=== PATIENT | female | born 2000 | race Caucasian/White ===

== ENCOUNTER 2021-07-30 11:33 | Emergency (ER) | payer BC, SELFPAY ==
--- NOTE | ~2021-07-30 | XR_ITS ---
EXAMINATION: XR chest 2V 07/30/2021 12:35 INDICATION: Cough. Right-sided wheezing. PROCEDURE: 2 view chest COMPARISON: No prior studies for comparison. FINDINGS: The lungs are clear. The cardiomediastinal silhouette is within normal limits. There are no pleural effusions. There is no pneumothorax suspected. IMPRESSION: 1: NO ACUTE CARDIOPULMONARY DISEASE. Reviewed, dictated and finalized at location A.
[2021-07-30 11:59] VITALS: BP 125/75; PULSE 74; RESP 18; TEMP 36.6; O2SAT 100
--- NOTE | 2021-07-30 12:31 | ED.URI ---
HPI - URI/Sore Throat General Chief Complaint: Upper Respiratory Infection Stated Complaint: Sore Throat,Cough Source: patient Mode of arrival: ambulatory Limitations: no limitations History of Present Illness HPI Narrative: Patient is a 21-year-old female who presents complaining of body aches, productive cough, congestion and hoarseness over the past week. Patient is a member of reports negative Covid test on . She reports a history of sinusitis and pneumonia. She denies other significant medical history. She denies taking [id number] medications prior to arrival. Related Data Allergies Allergy/AdvReac Type Severity Reaction Status Date / Time No Known Allergies Allergy Verified 07/30/21 12:51 Review of Systems Review of Systems: CONSTITUTIONAL: Reports body aches EYES: Denies visual changes, redness, or discharge. ENT: Reports congestion, mild sore throat and hoarseness CARDIOVASCULAR: Denies chest pain, palpitations, or edema. RESPIRATORY: Reports intermittent productive cough, denies dyspnea. GASTROINTESTINAL: Denies abdominal pain, nausea, vomiting, or diarrhea. GENITOURINARY: Denies dysuria or hematuria. SKIN: Denies rash or itching. MUSCULOSKELETAL: Denies back pain, joint pain, or myalgia. NEUROLOGIC: Denies headache, numbness, dizziness, or weakness. PSYCHIATRIC: Denies anxiety or depression. Exam Narrative: GENERAL: Well-appearing, well-nourished, and in no acute distress. HEAD: Normocephalic, atraumatic. EYES: EOMI. No redness or drainage. Conjunctiva are normal. ENT: Mucous membranes pink and moist. CHEST: No respiratory distress. Scattered wheezes bilaterally HEART: Regular rate and rhythm. No murmur appreciated. Normal peripheral pulses. EXTREMITIES: Normal range of motion. NEURO: No focal deficits. Alert and oriented x3. Gait steady. PSYCH: Normal affect. No signs of depression or anxiety. Course Vital Signs Vital signs: Vital Signs Temperature 36.6 C 07/30/21 11:59 Pulse Rate 74 07/30/21 11:59 Respiratory Rate 18 07/30/21 11:59 Blood Pressure 125/75 07/30/21 11:59 Pulse Oximetry 100 07/30/21 11:59 Temperature 36.6 C 07/30/21 11:59 Pulse Rate 74 07/30/21 11:59 Respiratory Rate 18 07/30/21 11:59 Blood Pressure 125/75 07/30/21 11:59 Pulse Oximetry 100 07/30/21 11:59 Reviewed MDM - URI/Sore Throat MDM Narrative Medical decision making narrative: Patient's rapid Covid test is negative at this time. Discussed with patient taking prednisone for scattered wheezes bilaterally. Patient agrees with plan of care. Patient is aware of red flags and when to seek further assistance. Patient is stable for discharge home with outpatient follow-up as discussed. Differential Diagnosis Differential diagnosis: Likely other (URI, pharyngitis, bronchitis, Covid, viral infection) Imaging Data Radiologist's impression: ITS Impressions Chest X-Ray 07/30/21 12:39 IMPRESSION: 1: NO ACUTE CARDIOPULMONARY DISEASE. Critical Care Time Critical Care Time Critical Care Time: No Discharge Plan Discharge Clinical Impression: Upper respiratory infection Qualifiers: URI type: unspecified URI Qualified Code(s): J06.9 - Acute upper respiratory infection, unspecified Patient Disposition: Home, Self-Care Condition: Stable Instructions: Antibiotic Form, Upper Respiratory Infection (ED) Additional Instructions: Your rapid Covid is negative at this time. You most likely have a viral upper respiratory infection. Take prednisone as directed. Stay well-hydrated. Follow-up with your PCP in 3 to 5 days if symptoms continue to persist. Prescriptions: New prednisone 20 mg tablet 40 mg PO DAILY 5 Days Qty: 10 RF: 0 azithromycin 250 mg tablet See Rx Instructions .ROUTE .COMPLEX Qty: 6 RF: 0 Follow-up/Referrals: [facility], [Primary Care Provider] -
== END 2021-07-30 13:00 | disposition home or self-care (01) ==
PROVIDERS: Emergency Provider Nurse Practitioner
DX: J02.9 Acute pharyngitis, unspecified (principal); Z20.822 Contact with and (suspected) exposure to COVID-19
CPT/HCPCS: 71046; 87426; 99213; C9803; G0463

== ENCOUNTER 2023-01-11 10:19 | Outpatient (CLI) | payer BC, SELFPAY ==
[2023-01-11 10:30] LABS: Basophils Absolute Auto 0.02 K/mm3 (0.00-0.10); Basophils Percent Auto 0.5 % (0.0-1.0); Eosinophils Absolute Auto 0.07 K/mm3 (0.02-0.50); Eosinophils Percent Auto 1.6 % (1.0-6.0); Hematocrit 40.5 % (35.0-49.0); Hemoglobin 14.1 g/dL (12.0-15.0); Immature Granulocyte Absolute 0.01 K/mm3 (0.00-0.00); Immature Granulocyte Percent A 0.2 % (0.0-0.0); Lymphocytes Absolute Auto 1.64 K/mm3 (1.10-4.50); Lymphocytes Percent Auto 38.2 % (18.0-42.0); Mean Corpuscular HGB Conc 34.8 g/dL (32.0-36.0); Mean Corpuscular Hemoglobin 32.7 pg (27.0-31.0); Mean Platelet Volume 10.2 fl (9.2-11.8); Monocytes Absolute Auto 0.28 K/mm3 (0.10-0.90); Monocytes Percent Auto 6.5 % (2.0-11.0); Neutrophils Absolute Auto 2.3 K/mm3 (1.7-7.2); Platelet Count Result 187 K/mm3 (150-420); Red Blood Count 4.31 M/mm3 (4.20-5.40); Red Cell Distribution Width 12.3 % (11.6-14.4); White Blood Count 4.3 K/mm3 (4.8-10.8)
[2023-01-11 11:30] LABS: Anion Gap 7 mmol/L (8-16); Blood Urea Nitrogen 10 mg/dL (7-18); Calcium 9.1 mg/dL (8.5-10.1); Carbon Dioxide 29 mmol/L (21-32); Chloride 105 mmol/L (98-108); Cholesterol 194 mg/dL (0-200); Estimated Glomerular Filt Rate > 60; Free T4 Free Thyroxine 0.98 ng/dL (0.76-1.46); Glucose 90 mg/dL (70-99); HDL Direct 91 mg/dL (40-60); LDL Cholesterol Calculated 92 mg/dL (<130); Osmolality Calculated 291 mOsm/kg (285-295); Potassium 4.6 mmol/L (3.5-5.1); Sodium 141 mmol/L (136-145); Thyroid Stimulating Hormone 0.75 uIU/mL (0.36-3.74); Triglycerides 57 mg/dL (0-150)
[2023-01-15 04:14] LABS: Thyroid Peroxidase Antibodies <1 IU/mL (<9)
== END 2023-01-11 10:20 | disposition home or self-care (01) ==
PROVIDERS: PCP Family Medicine; Visit Provider Physician Assistant Medical
DX: E04.9 Nontoxic goiter, unspecified (principal); Z82.49 Family history of ischemic heart disease and other diseases of the circulatory system; Z13.220 Encounter for screening for lipoid disorders; R11.0 Nausea; R42 Dizziness and giddiness
CPT/HCPCS: 36415; 80048; 80061; 84439; 84443; 85025; 86376

== ENCOUNTER 2023-01-11 15:37 | Outpatient (CLI) | payer BC, SELFPAY ==
--- NOTE | ~2023-01-11 | US_ITS ---
EXAMINATION: US thyroid DATE: 01/11/2023 16:27 INDICATION: Nontoxic goiter, unspecified. TECHNIQUE: Multiple ultrasound images of the thyroid were obtained. COMPARISON: None. FINDINGS: The right thyroid lobe measures 5.3 x 1.2 x 1.4 cm. The left thyroid lobe measures 5.5 x 1.2 x 1.6 c m. There is normal echotexture and echogenicity throughout the thyroid gland. No discrete nodules id entified. Normal vascular flow is present. IMPRESSION: 1. Normal thyroid. Reviewed, dictated and finalized at location A. IMPRESSION: 1. Normal thyroid.
== END 2023-01-11 15:38 | disposition home or self-care (01) ==
PROVIDERS: PCP Family Medicine; Visit Provider Physician Assistant Medical
DX: E04.9 Nontoxic goiter, unspecified (principal)
CPT/HCPCS: 76536

== ENCOUNTER 2023-01-18 11:35 | Outpatient (CLI) | payer OTHER, BC, SELFPAY ==
[2023-01-18 11:47] LABS: Basophils Absolute Auto 0.03 K/mm3 (0.00-0.10); Basophils Percent Auto 0.7 % (0.0-1.0); Eosinophils Absolute Auto 0.08 K/mm3 (0.02-0.50); Eosinophils Percent Auto 1.9 % (1.0-6.0); Hematocrit 41.9 % (35.0-49.0); Hemoglobin 14.7 g/dL (12.0-15.0); Lymphocytes Absolute Auto 1.56 K/mm3 (1.10-4.50); Lymphocytes Percent Auto 37.1 % (18.0-42.0); Mean Corpuscular HGB Conc 35.1 g/dL (32.0-36.0); Mean Corpuscular Hemoglobin 32.3 pg (27.0-31.0); Mean Corpuscular Volume 92.1 fL (78.0-102.0); Mean Platelet Volume 10.2 fl (9.2-11.8); Monocytes Absolute Auto 0.24 K/mm3 (0.10-0.90); Monocytes Percent Auto 5.7 % (2.0-11.0); Neutrophils Absolute Auto 2.3 K/mm3 (1.7-7.2); Neutrophils Percent Auto 54.6 % (50.0-70.0); Platelet Count Result 168 K/mm3 (150-420); Red Blood Count 4.55 M/mm3 (4.20-5.40); Red Cell Distribution Width 11.9 % (11.6-14.4); White Blood Count 4.2 K/mm3 (4.8-10.8)
== END 2023-01-18 11:36 | disposition home or self-care (01) ==
LOC: CHSLAB 11:37
PROVIDERS: PCP Nurse Practitioner Family; Visit Provider Nurse Practitioner Family
DX: D72.9 Disorder of white blood cells, unspecified (principal)
CPT/HCPCS: 36415; 85025

== ENCOUNTER 2023-08-14 10:37 | Emergency (ER) | payer BC, OTHER, SELFPAY ==
[2023-08-14 10:49] VITALS: BP 112/73; PULSE 73; RESP 16; TEMP 36.8; O2SAT 100
--- NOTE | 2023-08-14 11:07 | ED.FEMALEGU ---
HPI - Female Genitourinary General Chief complaint: Urogenital-Female Stated complaint: Female Urogenital Time Seen by Provider: 08/14/23 11:07 Source: patient, RN notes reviewed and old records reviewed Mode of arrival: ambulatory Limitations: no limitations History of Present Illness HPI Narrative: 23-year-old female presents to the [facility] with complaints of vaginal itching since the 03 of August, 11 days. Patient had called mail distribution scheme examiner provider, was prescribed Diflucan on the night. States it did get better however did not completely resolve. Did make an appointment to see her mail distribution scheme examiner however she canceled it. Onset (ago): day(s) (11) Related Data Allergies Allergy/AdvReac Type Severity Reaction Status Date / Time No Known Allergies Allergy Verified 08/14/23 10:57 Review of Systems Review of Systems: All systems reviewed & are unremarkable except as noted in HPI and below Constitutional: Constitutional: Reports no additional constitutional complaints Eyes: Eyes: Reports no additional eye complaints ENT: Reports system reviewed and no additional complaints, except as documented Cardiovascular: Cardiovascular: Reports no additional cardiovascular complaints, Denies chest pain and Denies dyspnea Respiratory: Respiratory: Reports no additional respiratory complaints, Denies chest congestion, Denies cough and Denies dyspnea Gastrointestinal: Gastrointestinal: Reports no additional gastrointestinal complaints, Denies abdominal pain, Denies nausea and Denies vomiting Genitourinary: Genitourinary: Reports as per HPI, Denies dysuria, Reports vaginal discharge and Reports vaginal dryness Musculoskeletal: Musculoskeletal: Reports no additional musculoskeletal complaints Integumentary/Breasts: Skin/Breast: Reports system reviewed and no additional complaints, except as docu Neurologic: Reports system reviewed and no additional complaints, except as documented Psychiatric: Psychiatric: Reports no additional psychiatric complaints Allergic/Immunologic: Allergic/Immunologic: Reports no additional allergic/immunologic complaints REPLACED BY [facility] Past Medical History Medical History BMI 26.0-26.9,adult Family History Family History Other Alcohol abuse Asthma Depression Diabetes mellitus Heart disease Social History Social History Smoking status: Never smoker Alcohol intake: current Substance use: never Lack of Transportation: No Lack of Food: Never True Current Housing: I Have Housing Concerned About Future Housing: No Difficulty Paying Gas/Electric Bills: No Difficulty Paying for Meds: No Currently Unemployed: No Education: High School Diploma/GED Difficulty w/ Childcare or Family Care: No Comments At the time of my signature, I reviewed and agree with the nursing past medical, surgical, social, and family history. There is no relevant family history pertinent to the patient complaint. Exam Const: General: cooperative, healthy appearing, comfortable, no acute distress, well developed, alert and well nourished Nutritional Appearance: well nourished Orientation/consciousness: patient oriented x3 Limitations: no limitations HENMT: Head: normal to inspection Ears: hearing grossly normal bilaterally and external ears normal Face/Nose/Sinus: Normal external nose present, Normal nares present, Normal nasal mucous membranes and turbinates present, normal facial exam and face symmetric Face and sinus: normal facial exam and face symmetric Eyes: General: appearance normal, both eyes and all related structures Alignment and Position: alignment normal Periorbital: periorbital findings normal Pupils: Equal, round and reactive pupils present EOM: EOMs intact bilaterally Neck: Neck: normal visual inspection, full ROM, no lymphadenopathy and no me
[2023-08-14 19:28] LABS: Trichomonas Vag PCR NOT DETECTED (NOT DETECTE)
== END 2023-08-14 11:40 | disposition home or self-care (01) ==
PROVIDERS: Emergency Provider Nurse Practitioner
DX: N76.0 Acute vaginitis (principal)
CPT/HCPCS: 81003; 81025; 87070; 87491; 87591; 87661; 99214; G0463

== ENCOUNTER 2024-02-18 09:48 | Emergency (ER) | payer BC, OTHER, SELFPAY ==
[2024-02-18 10:00] VITALS: BP 117/69; PULSE 73; RESP 20; TEMP 37.3; O2SAT 100
--- NOTE | 2024-02-18 10:02 | ED.GENADULT ---
HPI - General Adult General Chief complaint: Wound/Laceration Stated complaint: Skin Problem Source: patient, RN notes reviewed and old records reviewed Mode of arrival: ambulatory Limitations: no limitations History of Present Illness HPI narrative: 24-year-old female with small red area to right upper arm that she noted yesterday. Patient states has had slight drainage. Patient denies injury. Patient has not applied anything at home for area. Related Data Allergies Allergy/AdvReac Type Severity Reaction Status Date / Time No Known Allergies Allergy Verified 02/18/24 10:19 Review of Systems Constitutional: Constitutional: Reports no additional constitutional complaints, Denies body ache(s), Denies chills, Denies fatigue, Denies fever(s) and Denies headache(s) Eyes: Eyes: Reports no additional eye complaints and Denies blurry vision ENT: Reports system reviewed and no additional complaints, except as documented, Denies vertigo, Denies dizziness, Denies ear discharge, Denies otalgia, Denies facial pain, Denies headache(s), Denies nasal congestion, Denies nasal discharge, Denies sinus pain, Denies sinus pressure and Denies sore throat Cardiovascular: Cardiovascular: Reports no additional cardiovascular complaints, Denies chest pain, Denies chest pain at rest, Denies rapid heart rate and Denies dyspnea Respiratory: Respiratory: Reports no additional respiratory complaints, Denies chest congestion, Denies cough, Denies pain on inspiration, Denies pain with cough and Denies dyspnea Gastrointestinal: Gastrointestinal: Denies abdominal pain, Denies diarrhea, Denies nausea and Denies vomiting Integumentary/Breasts: Skin/Breast: Denies rash and Reports wounds Neurologic: Reports system reviewed and no additional complaints, except as documented, Denies vertigo, Denies dizziness and Denies headache(s) Endocrine: Endocrine: Denies fatigue [facility] Past Medical History Medical History BMI 26.0-26.9,adult Family History Family History Other Alcohol abuse Asthma Depression Diabetes mellitus Heart disease Social History Social History Smoking status: Never smoker Alcohol intake: current Substance use: never Lack of Transportation: No Lack of Food: Never True Current Housing: I Have Housing Concerned About Future Housing: No Difficulty Paying Gas/Electric Bills: No Difficulty Paying for Meds: No Currently Unemployed: No Education: High School Diploma/GED Difficulty w/ Childcare or Family Care: No Comments At the time of my signature, I reviewed and agree with the nursing past medical, surgical, social, and family history. There is no relevant family history pertinent to the patient complaint. Exam Const: General: cooperative, healthy appearing, no acute distress and well nourished Nutritional Appearance: well nourished Orientation/consciousness: patient oriented x3 Limitations: no limitations HENMT: Head: normal to inspection and normocephalic Ears: external ears normal Face/Nose/Sinus: normal facial exam Face and sinus: normal facial exam Mouth: Yes Normal oral and palatal mucosa present, Yes oropharynx normal and Yes moist mucous membranes Throat: uvular edema Eyes: General: appearance normal, both eyes and all related structures Sclera: sclerae normal Pupils: Equal, round and reactive pupils present Resp: Effort & Inspection: normal respiratory effort, able to speak in complete sentences, no audible wheezes, no cough, no respiratory distress and no retractions Skin: General skin exam: normal color Wounds: wounds noted ( 0.2 cm open area to left upper arm no surrounding erythema or drainage) Neuro: General: patient oriented x3 Cranial nerves: Yes Equal, round and reactive pupils present Psych: Appearance: grossly
== END 2024-02-18 10:36 | disposition home or self-care (01) ==
PROVIDERS: Emergency Provider Registered Nurse
DX: S40.861A Insect bite (nonvenomous) of right upper arm, initial encounter (principal); W57.XXXA Bitten or stung by nonvenomous insect and other nonvenomous arthropods, initial encounter
CPT/HCPCS: 99213; G0463

== ENCOUNTER 2024-06-10 14:43 | Emergency (ER) | payer BC, SELFPAY ==
[2024-06-10 14:52] VITALS: BP 113/75; PULSE 81; RESP 20; TEMP 36.6; O2SAT 99
--- NOTE | 2024-06-10 15:06 | ED.GENADULT ---
HPI - General Adult General Chief complaint: Urogenital-Female Stated complaint: Vaginal infection Source: patient Mode of arrival: ambulatory Limitations: no limitations History of Present Illness HPI narrative: Patient presents for evaluation of vaginal itching for the last 2 days. She denies any vaginal discharge or bleeding. Last menstrual period was over this past weekend(today is Sunday). She is not on contraception. She is sexually active with 1 male partner, intermittently using condoms. She denies any urinary urgency, frequency, dysuria. No fever, chills, nausea, vomiting. She states she had similar symptoms in the past with bacterial vaginosis. Related Data Allergies Allergy/AdvReac Type Severity Reaction Status Date / Time No Known Allergies Allergy Verified 02/18/24 10:19 Review of Systems Review of Systems: CONSTITUTIONAL: Denies fever, chills, or sweats. EYES: Denies visual changes, redness, or discharge. ENT: Denies rhinorrhea, congestion, sore throat, or otalgia. CARDIOVASCULAR: Denies chest pain, palpitations, or edema. RESPIRATORY: Denies cough or dyspnea. GASTROINTESTINAL: Denies abdominal pain, nausea, vomiting, or diarrhea. GENITOURINARY: Reports vaginal itching. Denies vaginal bleeding or discharge. Denies dysuria or hematuria. SKIN: Denies rash or itching. MUSCULOSKELETAL: Denies back pain, joint pain, or myalgia. NEUROLOGIC: Denies headache, numbness, dizziness, or weakness. PSYCHIATRIC: Denies anxiety or depression. [facility] Past Medical History Medical History BMI 26.0-26.9,adult No pertinent past medical history Surgical History Surgical History No pertinent past surgical history Family History Family History Other Alcohol abuse Asthma Depression Diabetes mellitus Heart disease Social History Social History Smoking status: Never smoker Alcohol intake: current Substance use: never Lack of Transportation: No Lack of Food: Never True Current Housing: I Have Housing Concerned About Future Housing: No Difficulty Paying Gas/Electric Bills: No Difficulty Paying for Meds: No Currently Unemployed: No Education: High School Diploma/GED Difficulty w/ Childcare or Family Care: No Exam Narrative: GENERAL: Well-appearing, well-nourished, and in no acute distress. HEAD: Normocephalic, atraumatic. EYES: PERRLA and EOMI. ENT: Nares clear, no rhinorrhea or epistaxis. Mucous membranes moist. Oropharynx without tonsillar hypertrophy exudate or other lesions. Bilateral TMs pearly saeed nonbulging NECK: Supple. No adenopathy or masses. No carotid bruits or JVD CHEST: Clear to auscultation. No respiratory distress. No wheezes rales or rhonchi HEART: Regular rate and rhythm. No murmur heard. Normal peripheral pulses. ABDOMEN: Soft, nontender, nondistended, normal active bowel sounds. EXTREMITIES: Normal range of motion. No edema. GENITAL: No external genital lesions. No adnexal tenderness. No cervical motion tenderness. Moderate amount of white clumpy drainage in vaginal vault with dried blood SKIN: Warm, dry, no rash. NEURO: No focal deficits. Alert and oriented x3. PSYCH: Normal mood and affect. Course Course Emergency Course: This is a 24-year-old who presents for vaginal itching. Her urine does not have changes consistent with a UTI. Clinical exam is consistent with vaginal candidiasis although she states that her symptoms are consistent with when she had BV. Will dc with fluconazole and metronidazole. Follow-up with primary provider. Go to the ER for worsening symptoms. Patient in agreement with plan of care. Level of Care: Express Care Visit Vital Signs Vital signs: Vital Signs Temperature 36.6
[2024-06-10 15:24] LABS: EDUAAPPEAR Clear; EDUABILI Negative; EDUABLOOD Negative; EDUACOLOR1 Yellow; EDUAGLUCOSE Negative; EDUAKETONE Negative; EDUALEUKO Negative; EDUANITRATE Negative; EDUAPH 8.5; EDUAPROTEIN Negative; EDUAUROBILI 0.2
[2024-06-10 15:24] LABS: BEDSIDEPREGUCG Negative
[2024-06-10 21:18] LABS: Trichomonas Vag PCR NOT DETECTED (NOT DETECTE)
[2024-06-10 21:45] LABS: Chlamydia trachomatis NOT DETECTED (NOT DETECTE); Neisseria gonorrhoeae PCR NOT DETECTED (NOT DETECTE)
[2024-06-12 16:24] LABS: Bacterial Vaginosis NEGATIVE (NEGATIVE)
== END 2024-06-10 15:43 | disposition home or self-care (01) ==
PROVIDERS: Emergency Provider Nurse Practitioner
DX: N76.0 Acute vaginitis (principal)
CPT/HCPCS: 81003; 81025; 81513; 87491; 87591; 87661; 99213; G0463

== ENCOUNTER 2024-12-04 10:04 | Emergency (ER) | payer BC, SELFPAY ==
[2024-12-04 10:13] VITALS: BP 128/79; PULSE 117; RESP 18; TEMP 37; O2SAT 100
--- NOTE | 2024-12-04 10:13 | ED_ITS ---
HPI - General Adult General Chief complaint: Skin/Abscess/Foreign Body Stated complaint: Skin Sore Time Seen by Provider: 12/04/24 10:24 Source: patient Mode of arrival: ambulatory Limitations: no limitations History of Present Illness HPI narrative: 24-year-old female presented for complaint of a painful abscess worsening to the tailbone for about 11 days. Patient had the abscess for 1 week and was seen at an urgent care, given Bactrim x4 days. Pt said it was draining at the time. Now reporting nausea, fever and chills. She has continued Epson salt baths as directed, taking Tylenol and ibuprofen but states it is painful to walk now. denies Related Data Home Medications ?Medication ?Instructions ?Recorded ?Confirmed ?Last Taken ?Type sulfamethoxazole 800 tablet 12/04/24 Unknown History mg-trimethoprim 160 mg tablet Allergies Allergy/AdvReac Type Severity Reaction Status Date / Time No Known Allergies Allergy Verified 12/04/24 11:15 Review of Systems Review of Systems: CONSTITUTIONAL: Denies body aches, fever, chills, or sweats. EYES: Denies visual changes, redness, or discharge. ENT: Denies rhinorrhea, congestion CARDIOVASCULAR: Denies chest pain, palpitations, or edema. RESPIRATORY: Denies cough or dyspnea. GASTROINTESTINAL: Denies abdominal pain, nausea, vomiting, or diarrhea. SKIN: reports abscess to tailbone MUSCULOSKELETAL: Denies back pain, joint pain, or myalgia. NEUROLOGIC: Denies headache, numbness, tingling, or weakness. [facility] Past Medical History Medical History No pertinent past medical history BMI 26.0-26.9,adult Surgical History Surgical History No pertinent past surgical history Family History Family History Other Alcohol abuse Asthma Depression Diabetes mellitus Heart disease Social History Social History Smoking status: Never smoker Alcohol intake: current Substance use: never Lack of Transportation: No Lack of Food: Never True Current Housing: I Have Housing Concerned About Future Housing: No Difficulty Paying Gas/Electric Bills: No Difficulty Paying for Meds: No Currently Unemployed: No Education: High School Diploma/GED Difficulty w/ Childcare or Family Care: No Comments At time of signature, I have reviewed and agree with nursing past medical, surgical, social and family history unless otherwise noted. Please see nursing chart for further information. There is no relevant family history pertinent to the presenting complaint Exam Narrative: GENERAL: Well-appearing EYES: conjunctivae clear, and EOMI. ENT: Mucous membranes moist. Oropharynx without edema, erythema or lesions. NECK: Supple. No lymphadenopathy CHEST: Clear to auscultation. HEART: Regular rate and rhythm. SKIN: Warm, dry. Pilonidal abscess noted, left buttock with large area of induration approx 6cm, center with raised fluctuant area no active drainage. Tender. Approx 3cm center. NEURO: Alert and oriented x3. Course Course Emergency Course: Patient is aware of diagnosis, understands and agrees to treatment plan. Anticipatory guidance given. Patient agrees to follow-up as directed and is aware of reasons to seek care at the emergency department. Portions of this record may have been created with voice recognition software Level of Care: Express Care Visit Vital Signs Vital signs: Vital Signs Temperature 98.6 F 12/04/24 10:13 Pulse Rate 117 H 12/04/24 10:13 Respiratory Rate 18 12/04/24 10:13 Blood Pressure 128/79 12/04/24 10:13 Pulse Oximetry 100 12/04/24 10:13 Oxygen Delivery Room Air 12/04/24 10:13 Temperature 98.6 F 12/04/24 10:13 Pulse Rate 117 H 12/04/24 10:13 Respiratory Rate 18 12/04/24 10:13 Blood Pressure 128/79 12/04/24 10:13 Pulse Oximetry 100 12/04/24 10:13 Oxygen Delivery Room Air 12/04/24 10:13 Reviewed Procedures Abscess I/D pilonidal: Date of Incision: 12/04/24 Local Anesthetic: lidocaine 1% Amount of anesthesia used (mL): 3 Technique: incised with #11 blade and probed loculations Irrigation: Yes (200ml) I&D Results: Pus and Blood Abcess I&D Additional Comments: The procedure and its alternatives were reviewed with patient. Risks were reviewed with patient including infection and damage to nearby structures. Patient provided verbal informed consent. The patient was positioned appropriately. Local anesthesia achieved. Single straight Incision made to center of most fluctuant area. Large amount of thick purulent discharge expelled with manual pressure. Wound irrigated and probed for loculations. See above. Pt tolerated the procedure fair, reported tenderness throughout the encounter. Dressing applied per RN. Medical Decision Making MDM Narrative Medical decision making narrative: Culture C&S is pending from 11/30. Patient will continue the Bactrim until finalized. Discussed physical exam findings, large pilonidal abscess. ER transfer for further evaluation due to fever, nausea, and significant tunneling. Differential Diagnosis Differential Diagnosis: abscess, cellulitis, viral exanthema, contact dermatitis, allergic dermatitis, eczema, urticaria, insect bites, tinea, folliculitis Vital Signs Vital Signs: Vital Signs Temperature 98.6 F 12/04/24 10:13 Pulse Rate 117 H 12/04/24 10:13 Respiratory Rate 18 12/04/24 10:13 Blood Pressure 128/79 12/04/24 10:13 Pulse Oximetry 100 12/04/24 10:13 Oxygen Delivery Room Air 12/04/24 10:13 Temperature 98.6 F 12/04/24 10:13 Pulse Rate 117 H 12/04/24 10:13 Respiratory Rate 18 12/04/24 10:13 Blood Pressure 128/79 12/04/24 10:13 Pulse Oximetry 100 12/04/24 10:13 Oxygen Delivery Room Air 12/04/24 10:13 Discharge Plan Discharge Clinical Impression: Abscess of skin or subcutaneous tissue Patient Disposition: Acute Care Hospital Condition: Stable Instructions: Antibiotic Form, Pilonidal Cyst (ED) Patient Language: Maltese Prescriptions: No Action sulfamethoxazole-trimethoprim 800-160 mg tablet Follow-up/Referrals: PHYSICIAN,AUTO CAMP ATTENDANT [Primary Care Provider] - Time of Disposition: 12:01
--- OUTSIDE RECORDS SUMMARY | 2024-12-04 10:29 | XMS_ITS | Clinical Summary ---
Author Organization [facility] 1 [employer] Address [address] [place] [address] Phone Care Team Providers Care Customer Complaint Clerk Name Role Phone Asad Geiger MD Primary Care Provider [phone] Allergies No known active allergies Medications desogestreL-ethiny l estradioL (APRI) 0.15-0.03 mg per tabletIndications: Dysmenorrhea,Encou nter for general counseling and advice on contraceptive management Take 1 tablet by mouth daily 84 tablet 4 Active Active Problems Problem Noted Date Diagnosed Date Thumb pain 12/22/2015 Overview (02/02/2017): Thumb pain Headache 12/21/2015 Overview (02/02/2017): Headache Resolved Problems Problem Noted Date Diagnosed Date Resolved Date Encounter for routine child health examination without abnormal findings 05/29/2017 Encounters Date Type Department Care Team Description 09/22/2024 Telephone [facility] [address] [place] [phone] Mirtha Barrera LPN 09/18/2024 2:43 PM BLENDING COORDINATOR - 09/18/2024 11:59 PM BLENDING COORDINATOR Hospital Encounter [address] [address] Screening examination for venereal disease Discharge Disposition: Discharge to home or self care 09/18/2024 2:15 PM BLENDING COORDINATOR Office Visit [facility] [address] [place] [phone] Kelly Cheng MD Encounter for gynecological examination without abnormal finding (Primary Dx); Dysmenorrhea; Encounter for general counseling and advice on contraceptive management; Screening examination for venereal disease from Last 3 Months Immunizations Name Administration Dates Next Due DTaP 5 Pertussis 05/10/2004, 1,2000,05/14,2000 HPV, Quadrivalent 11/13/2011,07/14/2011,05/09/20 11 Hep B / HiB 04/22/2001,2000,2000 IPV 05/10/2004, 1,2000,03/16 Influenza, Quadrivalent, Cuca l Culture-based MDCK, Preservative Free, Antibiotic Free, Intramuscular 08/06/2020 Influenza, Quadrivalent, Spl it, Preservative Free, Intramuscular 08/26/2019,08/07/2017,10/07/2016 Influenza, Trivalent, IM (MDV) 08/05/2012 Influenza, Trivalent, Preser vative Free, Intramuscular 08/07/2011 MMR 05/10/2004,01/22/2001 Meningococcal MCV4P (Menactra) 05/26/2016,2010 Pneumococcal Conjugate 7-Valent 04/22/20 01,2000,2000,05/14 Tdap 05/09/2011 Varicella 05/25/2014,01/22/2001 Surgical History Surgery Date Site/Laterality Comments OTHER SURGICAL HISTORY Planter Wart Removal TYMPANOSTOMY TUBE PLACEMENT Ear tubes Medical History Medical History Date Comments Hx Other Medical Fx. left thumb; Comments: JOE 12/23/2015 - Family History Medical History Relation Name Comments Heart attack Father Skin cancer Mother Cancer, skin; Other Other 1 1 Other Other 2 1 Arthritis Other 3 Family history of Arthritis; Other Other 4 1 Hypertension Other 5 Family history of Hypertension; Other Other 6 1 Diabetes Other 7 Family history of Diabetes mellitus; Relation Name Status Comments Father Mother Other 1 Other 2 Other 3 Other 4 Other 5 Other 6 Other 7 Social History Tobacco Use Types Packs/Day Years Used Date Smoking Tobacco: Never Smokeless Tobacco: Never Tobacco Cessation:Counseling Given: Not Answered Alcohol Use Standard Drinks/Week Comments No 0 (1 standard drink = 0.6 oz pur e alcohol) Comments No Sex and Gender Information Value Date Recorded Sex Assigned at Not on file Legal Sex Female 1:51 AM BLENDING COORDINATOR Gender Identity Female 01/20/2021 9:50 AM CDT Sexual Orientation Straight 01/20/2021 9: 50 AM CDT Occupation Industry Job Start Date Job End Date Not on file Not on file Not on file Not on file Obstetrics History Para Term AB IAB SAB Ectopic Multiple Livin g Live Births 0 0 0 0 0 0 0 0 0 0 0 Last Filed Vital Signs Vital Sign Reading Time Taken Comments Blood Pressure 124/80 09/18/2024 2:15 PM BLENDING COORDINATOR Pulse 87 10/12/2022 11:31 AM BLENDING COORDINATOR Temperature 37 C (98.6 F) 01/20/2021 2:49 PM CDT Respiratory Rate 14 10/12/2022 11:31 AM BLENDING COORDINATOR Oxygen Saturation 100% 10/12/2022 11:31 AM BLENDING COORDINATOR Inhaled Oxygen Concentration - - Weight 78.5 kg (173 lb) 09/18/2024 2:15 PM BLENDING COORDINATOR Height 162.6 cm (5' 4 ) 09/18/2024 2:15 PM BLENDING COORDINATOR Body Mass Index 29.7 09/18/2024 2:15 PM BLENDING COORDINATOR Plan of Treatment Health Maintenance Due Date Last Done Comments Depression Screening 2000 Hepatitis C Screening 2000 DTaP/Tdap/Td Vaccine (7 - Td or Tdap) 05/09/2021 05/09/2011, 05/10/2004, 04/22/2001, Additional history exists Influenza Vaccine (#1) 2024 , 08/26/2019, 08/07/2017, Additional history exists Cervical Cancer Screening 09/05/2024 09/05/2023, Chlamydia and Gonorrhea (GC/ CT) Screening 09/18/2025 09/18/2024, 03/30/2022, 03/23/2021 Regular Well Visit/Exam 18-64 09/18/2025, 09/05/2023, 03/30/2022, Additional history exists Pneumococcal vaccine <65 Completed 001, 2000, 2000, Additional history exists HPV Vaccines Completed 11/13/2011, 06/29, 05/09/2011 Varicella Vaccines Completed 05/25/2014, 01/22/2001 Procedures Procedure Name Priority Date/Time Associated Diagnosis Comments N. GONORRHOEAE/C. TRACHOMATIS AMPLIFICATION Routine 09/18/2024 2:43 PM BLENDING COORDINATOR Screening examination for venereal disease PAP WITH REFLEX TO HIGH RISK HPV Routine 09/05/2023 11:37 AM BLENDING COORDINATOR Screening for malignant neoplasm of the cervix from Last 3 Months or Most Recently Relevant to Health Maintenance Results * N. gonorrhoeae/C. trachomatis Amplification Endocervical (09/18/2024 2:43 PM BLENDING COORDINATOR) C. trachomatis Not Detected [facility] Comment:Testing performed by : [facility], [address] [place] [address]., [address] N. gonorrhoeae Not Detected [facility]ON[facility] ALVARES Comment: Interpretive Data This assay detects Chlamydia trachomatis and Neisseria gonorrhoeae by nucleic acid amplification testing (NAAT). This assay has been cleared by the [place] Food and Drug administration. The performance characteristics of this test have been verified by the [facility] Molecular Infectious Disease laboratory. The performance characteristics of this test have not been evaluated in individuals less than 14 years of age. Current Interpretive Data was last revised on 2023. Testing performed by: [facility], [address] [place] [address]., [address] Endocervical (None) 09/18/20 24 2:43 PM BLENDING COORDINATOR 09/19/2024 12:23 PM BLENDING COORDINATOR Kelly Cheng MD LAB MICROBIOLOGY - [facility] ORDERABLES Final Result ARMONITA ALVARES [address] [address] Department [place] [address] [facility] * Pap with reflex to High Risk HPV and Genotyping (Cytology Component) (09/05/2023 11:37 AM BLENDING COORDINATOR) Thin prep (Pap test) 09/05/2023 11:37 AM BLENDING COORDINATOR 09/05/2023 11:37 AM BLENDING COORDINATOR Narrative PATHOLOGY CH - 09/10/2023 1:16 PM BLENDING COORDINATOR [facility] Department of Pathology [address] [place], [place] [id number] Final Report Note to Patients: This report may contain a detailed description of human tissue sent by a health care provider to the laboratory for pathologic evaluation. The content of this report is essential for diagnosis and may provide important critical findings. This information may be unfamiliar to patients to review without a medical professional present. It is advised that the patient review this report in the presence of a health care provider who can answer questions and explain the details. Patient Name: KASSANDRA TERRY Address: [address] [place] [address] Gender: F : 2000 (Age: 23) Service: Location: N : [id number] Hospital #: [id number] Patient Type: SPECIMEN Taken: 09/05/2023 Received: 09/05/2023 Accessioned:: 09/06/2023 Reported: 09/10/2023 Physician(s): MD Kelly Mcgrath MD Diagnosis: SOURCE OF SPECIMEN Imaged Thinprep Pap Test w/ Reflex HPV - Industrial Property Appraiser Cytologic Material: STATEMENT OF ADEQUACY - Specimen satisfactory for interpretation; endocervical/transformation zone component absent or insufficient GENERAL CATEGORIZATION: - Negative for intraepithelial lesion or malignancy LATANYA Guadarrama(ASCP) Report Electronically Reviewed and Signed Out By LATANYA Guadarrama(ASCP) 09/10/2023 13:16:21Specimen(s) Received: A: Imaged Thinprep Pap Test w/ Reflex HPV - Industrial Property Appraiser Cytologic Material Clinical History: Last Menstrual Period: 07/2023 Menstrual History: Previous Negative Pap The Pap test is a screening test used to aid in the detection of cervical cancer and its precursors. It should not be the sole means by which malignant and premalignant lesions are diagnosed. Both false negative and false positive results may occur. It also has poor sensitivity for the detection of endometrial lesions and should not be used to evaluate suspected endometrial abnormalities. For these reasons it is most important to obtain Pap tests at regular intervals. The performance characteristics of some immunohistochemical stains, fluorescence in-situ hybridization tests and immunophenotyping by flow cytometry cited in this report (if any) were determined by the Surgical Pathology Department at [facility] as part of an ongoing dairy quality assurance officer program and in compliance with federally mandated regulations drawn from the Clinical Laboratory Improvement Act of 1988 (CLIA '88). Some of these tests rely on the use of analyte specific reagents and are subject to specific labeling requirements by the [place] Food and Drug Administration. Such diagnostic tests may only be performed in a facility that is certified by the Department of Health and Human Services as a high complexity laboratory under CLIA '88. The FDA has determined that such clearance or approval is not necessary. This test is used for clinical purposes. It should not be regarded as investigational or for research. Nevertheless, federal rules concerning the medical use of analyte specific reagents require that the following disclaimer be attached to the report: This test was developed and its performance characteristics determined by the Surgical Pathology Department [facility]. It has not been cleared or approved by the [place]. S. Food and Drug Administration. Kelly Cheng MD LAB CYTOLOGY ORDERABL ES Final Result [facility] [address] [place] [address] from Last 3 Months or Most Recently Relevant to Health Maintenance Insurance [facility] BLUE ACC [facility] OOS [facility] WORKERS COMPENSATION GENERIC WORKERS COMPENSATION GENERIC Care Teams Customer Complaint Clerk Relationship Specialty Start Date End Date Asad Geiger MD [address] [place] [address] PCP - General 01/26/17
--- OUTSIDE RECORDS SUMMARY | 2024-12-04 10:29 | XMS_ITS | Referral Summary ---
Author Organization [facility] [address] [address] Address [address] [place] [address] Phone Care Team Providers Care Production Control Clerk Name Role Phone Asad Geiger MD Primary Care Provider [phone] Encounters Date Type Department Care Team Description 09/22/2024 Telephone [facility] [address] [place] [address] Mirtha Barrera LPN 09/18/2024 2:43 PM ASSOCIATE CHIEF NURSE - 09/18/2024 11:59 PM ASSOCIATE CHIEF NURSE [place] [address] Screening examination for venereal disease Discharge Disposition: Discharge to home or self care 09/18/2024 2:15 PM ASSOCIATE CHIEF NURSE [facility] [address] [place] [address] Kelly Cheng MD Encounter for gynecological examination without abnormal finding (Primary Dx); Dysmenorrhea; Encounter for general counseling and advice on contraceptive management; Screening examination for venereal disease from Last 3 Months Allergies No known active allergies Medications desogestreL-ethiny l estradioL (APRI) 0.15-0.03 mg per tabletIndications: Dysmenorrhea,Encou nter for general counseling and advice on contraceptive management Take 1 tablet by mouth daily 84 tablet 4 4 Active Active Problems Problem Noted Date Diagnosed Date Thumb pain 12/22/2015 Overview (02/02/2017): Thumb pain Headache 12/21/2015 Overview (02/02/2017): Headache Resolved Problems Problem Noted Date Diagnosed Date Resolved Date Encounter for routine child health examination without abnormal findings 05/29/2017 Immunizations Name Administration Dates Next Due DTaP [...] 7-Valent 04/22/20 01,2000,2000,05/14 Tdap 05/09/2011 Varicella 05/25/2014,01/22/2001 Social History Tobacco Use Types Packs/Day Years Used Date Smoking Tobacco: Never Smokeless Tobacco: Never Tobacco Cessation:Counseling Given: Not Answered Alcohol Use Standard Drinks/Week Comments No 0 (1 standard drink = 0.6 oz pur e alcohol) Comments No Sex and Gender Information Value Date Recorded Sex Assigned at Not on file Legal Sex Female 1:51 AM ASSOCIATE CHIEF NURSE Gender Identity Female 01/20/2021 9:50 AM CDT Sexual Orientation Straight 01/20/2021 9: 50 AM CDT Occupation Industry Job Start Date Job End Date Not on file Not on file Not on file Not on file Last Filed Vital Signs Vital Sign Reading Time Taken Comments Blood Pressure 124/80 09/18/2024 2:15 PM ASSOCIATE CHIEF NURSE Pulse 87 10/12/2022 11:31 AM ASSOCIATE CHIEF NURSE Temperature 37 C (98.6 F) 01/20/2021 2:49 PM CDT Respiratory Rate 14 10/12/2022 11:31 AM ASSOCIATE CHIEF NURSE Oxygen Saturation 100% 10/12/2022 11:31 AM ASSOCIATE CHIEF NURSE Inhaled Oxygen Concentration - - Weight 78.5 kg (173 lb) 09/18/2024 2:15 PM ASSOCIATE CHIEF NURSE Height 162.6 cm (5' 4 ) 09/18/2024 2:15 PM ASSOCIATE CHIEF NURSE Body Mass Index 29.7 09/18/2024 2:15 PM ASSOCIATE CHIEF NURSE Plan of Treatment Not on file Procedures Procedure Name Priority Date/Time Associated Diagnosis Comments N. GONORRHOEAE/C. TRACHOMATIS AMPLIFICATION Routine 09/18/2024 2:43 PM ASSOCIATE CHIEF NURSE Screening examination for venereal disease PAP WITH REFLEX TO HIGH RISK HPV Routine 09/05/2023 11:37 AM ASSOCIATE CHIEF NURSE Screening for malignant neoplasm of the cervix from Last 3 Months or Most Recently Relevant to Health Maintenance Results * N. gonorrhoeae/C. trachomatis Amplification Endocervical (09/18/2024 2:43 PM ASSOCIATE CHIEF NURSE) C. trachomatis Not Detected [facility] Comment:Testing performed by : [facility], [address] [place]., [address] N. gonorrhoeae Not Detected RAMONITA ALVARES Comment: Interpretive Data This assay detects Chlamydia trachomatis and Neisseria gonorrhoeae by nucleic acid amplification testing (NAAT). This assay has been cleared by the [facility] Food and Drug administration. The performance characteristics of this test have been verified by the [facility] Molecular Infectious Disease laboratory. The performance characteristics of this test have not been evaluated in individuals less than 14 years of age. Current Interpretive Data was last revised on 2023. Testing performed by: [facility], [address] [place]., [address] Endocervical (None) 09/18/20 2:43 PM ASSOCIATE CHIEF NURSE 09/19/2024 12:23 PM ASSOCIATE CHIEF NURSE us Kelly Cheng MD LAB MICROBIOLOGY - [facility] ORDERABLES Final Result [facility] [address] Department [place] [address] [facility] * Pap with reflex to High Risk HPV and Genotyping (Cytology Component) (09/05/2023 11:37 AM ASSOCIATE CHIEF NURSE) Thin prep (Pap test) 09/05/2023 11:37 AM ASSOCIATE CHIEF NURSE 09/05/2023 11:37 AM ASSOCIATE CHIEF NURSE Narrative PATHOLOGY CH - 09/10/2023 1:16 PM ASSOCIATE CHIEF NURSE [facility] Department of Pathology [address] [place] [id number] Final Report Note to Patients: This report [...] the details. Patient Name: KASSANDRA TERRY Address: [address] [place] [address] Gender: F : 2000 (Age: 23) Service: Location: Hospital #: [id number] Patient Type: SPECIMEN Taken: 09/05/2023 Received: 09/05/2023 Accessioned:: 09/06/2023 Reported: 09/10/2023 Physician(s): MD Kelly Mcgrath MD Diagnosis: SOURCE OF SPECIMEN Imaged Thinprep Pap Test w/ Reflex HPV - Vacuum Cleaner Repairer Cytologic Material: STATEMENT OF ADEQUACY - Specimen satisfactory for interpretation; endocervical/transformation zone component absent or insufficient GENERAL CATEGORIZATION: - Negative for intraepithelial lesion or malignancy LATANYA Guadarrama(ASCP) Report Electronically Reviewed and Signed Out By LATANYA Guadarrama(ASCP) 09/10/2023 13:16:21Specimen(s) Received: A: Imaged Thinprep Pap Test w/ Reflex HPV - Vacuum Cleaner Repairer Cytologic Material Clinical History: Last Menstrual Period: [...] determined by the Surgical Pathology Department at [facility] as part of an ongoing quality analyst program and in compliance with federally mandated [...] characteristics determined by the Surgical Pathology Department [facility]. It has not been cleared or approved by the [place]. [place]. Food and Drug Administration. Kelly Cheng MD LAB CYTOLOGY ORDERABL ES Final Result PATHOLOGY [address] [place] [address] from Last 3 Months or Most Recently Relevant to Health Maintenance [facility] [employer] COMPENSATION GENERIC WORKERS COMPENSATION GENERIC Care Teams Production Control Clerk Relationship Specialty Start Date End Date Asad Geiger MD [address] [place] [address] PCP - General 01/26/17
--- OUTSIDE RECORDS SUMMARY | 2024-12-04 10:32 | XMS_ITS | Data Portability ---
Author Organization [facility] - Madhuri Laws, Telehealth Address [address] , [facility] [address] [place] [address] Assessment Encounter Date Assessment Date Assessment LastModified by Organization Details LastModified Time 01/09/2017 01/09/2017 speckled nevus R cheek rec second evaluation with Dr. Andrade, peds derm, to determine monitoring vs removal they will call me with information on when she is scheduled with Dr. Andrade acne vulgaris, inflammatory and comedonal-unstabl e differin 0.3 gel face, gradual increase to qhs BP wash qd recheck 3 mo benign nevi-not suspicious Not available 01/14/2017 22:48:12 04/16/2017 04/16/2017 acne vulgaris, stable cont epiduo forte qhs cont clinda lotion qd-bid face benign nevi-not suspicious discussed speckled nevus R cheek-rec monitor for change discussed option for eval with Dr Andrade for monitoring/eval nevus if desired rtc 6 mo Not available 04/16/2017 10:25:39 06/05/2017 06/05/2017 irritant contact dermatitis anaya axilla, less likely allergic contact dermatitis hold secret deodorant no evidence of infection cordran 0.05 cr BID up to 2 wks change to almay hypoallergenic deodorant Not available 06/05/2017 09:21:56 12/06/2017 12/06/2017 acne vulgaris-mild flare cont adapalene 0.3 gel face qhs restart clinda lotion qd-bid face restart bp wash face xerotic patches emollients acne recheck in 6 mo mom present in office-discussed above with mom after pt visit/sp Not available 12/08/2017 22:54:22 06/06/2022 06/06/2022 Epidermal cyst, noninflamed with punctum, L posterior shoulder- diagnosis reviewed. Discussed no treatment vs excision No treatment desired Benign nevi-discussed not suspicious Hypersensitivity localized eruption, L medial lower leg s/p arthropod bite Discussed diagnosis and no residual foreign body/stinger present Discussed option prescription topical steroid treatment BID x 2 wks Pt declines prescription treatment and elects use of otc hydrocortisone 2.5% cr BID x 2 wks and will call if prescription desired. Agree with plan. Recommend rtc fbse Not available 06/10/2022 16:46:25 Plan of Treatment Reminders Order Date Submit Date Provider Last Modified By Organization Details Last Modified Time Details Appointments None recorded. Lab None recorded. Referral None recorded. Procedures None recorded. Surgeries None recorded. Imaging None recorded. Medication Orders Differin 0.3 % topical gel 2016 017 [id number], [address] [place], [address], 2 17:25:38 adapalene 0.3 % topical gel 2017 018 [id number], [address] [place], [address], 2 17:25:38 clindamycin 1 % lotion 2017 018 [facility][id number], [address] [place], [address], 2 17:25:43 Patient TargetsNo targets recorded. Patient InstructionsNo instructions recorded. Reason for Referral None Reported. Medical Equipment None Reported. Allergies No known drug allergies Medications Name Sig Start Date Stop Date Status Note LastModified by Organization Details LastModified Time ketoconazole 2 % shampoo 06/06 completed Not Available Not Available Not Available azithromycin 250 mg tablet TAKE 2 TABLETS BY MOUTH TODAY, THEN TAKE 1 TABLET DAILY FOR 4 DAYS 06/06 completed Not Available Not Available Not Available ibuprofen 800 mg tablet TAKE 1 TABLET BY MOUTH EVERY 8 HOURS NEEDED FOR PAIN 06/06 completed Not Available Not Available Not Available hydrocodone 5 mg-acetamino phen 325 mg tablet TAKE 1-2 TABLETS BY MOUTH EVERY 6 HOURS NEEDED FOR PAIN 06/06 completed Not Available Not Available Not Available prednisone 20 mg tablet TAKE 2 TABLETS BY MOUTH DAILY FOR 5 DAYS 06/06 completed Not Available Not Available Not Available amitriptylin e 50 mg tablet 06/06 completed Not Available Not Available Not Available amoxicillin 875 mg tablet TAKE 1 TABLET BY MOUTH TWICE A DAY UNTIL GONE 06/06 completed Not Available Not Available Not Available amitriptylin e 25 mg tablet 01/09 completed Not Available Not Available Not Available polymyxin B sulfate 10,000 unit-trimeth oprim 1 mg/mL eye drops 01/09 completed Not Available Not Available Not Available polyethylene glycol 3350 17 gram/dose oral powder 01/09 completed Not Available Not Available Not Available amoxicillin 875 mg-potassium clavulanate 125 mg tablet TAKE 1 TABLET BY MOUTH TWICE A DAY 06/06 completed Not Available Not Available Not Available tobramycin 0.3 %-dexamethas one 0.1 % eye drops,suspen sharon 06/06 completed Not Available Not Available Not Available clindamycin 1 % lotion APPLY A THIN LAYER TO THE face BY TOPICAL ROUTE 2 TIMES PER DAY 06/06 completed Not Available Not Available Not Available adapalene 0.3 % topical gel APPLY TO THE FACE [facility] 06/06 completed Not Available Not Available Not Available Vitals None Recorded Social History Question Answer Notes LastModified by Organizat ion Details LastModified Time Tobacco Smoking Status Never Smoker JEFFREY Flynn MD 01/09/2017 15:21:26 What Is Your Level Of Alcohol Consumption? None Information not available 01/09/2017 In The 14 Days Before Symptom Onset, Have You Had Close Contact With A Laboratory-confirm ed COVID-19 While That Case Was Ill? No [email or web address] Information n ot available 06/06/2022 In The 14 Days Before Symptom Onset, Have You Had Close Contact With A Person Who Is Under Investigation For COVID-19 While That Person Was Ill? No [email or web address] Information not available 06/06/2022 What Was The Date Of Your Most Recent Tobacco Screening? 06/06/2022 [email or web address] Information not available 06/06/2022 Sun Exposure Frequent Information not available 01/09/2017 Do You Use Sunscreen Routinely? No Information not available 01/09/2017 Tanning Bed Exposure No Information not available 01/09/2017 Sex: Unknown Functional Status None recorded. Mental Status None recorded. Family History Relationship Description Onset Age of this Age Resolved Age Notes LastModified by Organization Details LastModified Time Mother Malignant neoplasm of skin Not available 2016 15:21:14 Paternal Grandfather Diabetes mellitus Not available 2016 15:21:20 Medical History Condition Response Diabetes N Bleeding Disorder N Arthritis N Hyperthyroidism N Defibrillator N Cancer N Stroke N Asthma N Hypothyroidism N Lupus N HIV/AIDS N Pacemaker N Anemia N Psoriasis N Hepatitis N Heart Disease N Hypertension N Gynecological HistoryNo gynecological history recorded. Obstetrics History GPAL:G 0 P 0 0 0 0 Past Encounters Encounter ID Performer Location Encounter Start Date Encounter Closed Date Diagnosis/Indication Diagnosis SNOMED-CT Code Diagnosis ICD10 Code Diagnosis Note [id number] Madhuri Hoff MD Main Office [address] [place] [phone] 7 01/09/2017 15:01:07 01/09/2017 16:19:29 Acne vulgaris 26667448 L70.0 Melanocyti c nevus of skin of thigh 408494838 D22.72 Melanocyti c nevus of upper limb 466400855 D22.61 Melanocyti c nevus of face 874903383 D22.30 [id number] Madhuri Hoff MD Main Office [address] [place] [address] [phone] 7 04/16/2017 09:59:36 04/16/2017 10:28:53 Acne vulgaris 82443205 L70.0 Melanocyti c nevus of face 222664124 D22.30 [id number] Madhuri Hoff MD Main Office [address] [place] [address] [phone] 06/05/2017 09:01:32 06/05/2017 10:30:39 Irritant contact dermatitis 652895356 L24.3 [id number] Madhuri Hoff MD Main Office [address] [place] [address] [place] [address] 12/06/2017 10:42:52 12/06/2017 11:28:48 Acne vulgaris 14543618 L70.0 [id number] Madhuri Hoff MD Main Office [address] [place] [address] [address] [place] [address] 06/06/2022 17:14:50 06/06/2022 17:47:56 Epidermoid cyst of skin 919171809 L72.0 Melanocyti c nevus of face 482490836 D22.30 Eruption 659060775 R21 Melanocyti c nevus of skin of thigh 031424595 D22.71 Health Concerns Section Related Observation LastModified by Organization Detai ls LastModified Time None Recorded Concern Status LastModified by Organization Details LastModified Time None Recorded Advance Directives Directive None Recorded Payers Encounter Date Sequence Insurance Name Policy Number Policy Hoyos Covered Member ID Hoyos Member ID Guarantor Name 01/09/2017 1 [facility] [id number] Inés Terry [id number] Inés Terry 04/16/2017 1 [facility] [id number] Inés Burkettis [id number] Inés Terry 06/05/2017 1 [facility] [id number] Inés Terry [id number] Inés Terry 12/06/2017 1 [place] [id number] Al Burkettis [id number] Inés Burkettis 06/06/2022 1 [place] [id number] Al Burkettis [id number] 001 Inés Terry Notes Date Note Type Note Provider Name and Address Organization Details Recorded Time 01/09/2017 text/html Acne SPReported bypatient.Duration: since adolescence Quality:improving Severity:improving Onset/Timing:recurr ing Context:picks a little Treatment History:other treatment with ; epiduo and topical lotion using qod, epiduo every other day when it is not bad, and when using qd gets dry on the forehead and chin.no bleeding spots, changing moles, or sores that don't want to heal.present with mom. Madhuri Hoff MD [address] [place] [address], [address], [place], [address], [facility] [place] Madhuri Hoff MD 01/14/2017 22:48:47 04/16/2017 text/html acne fusays medication is working welldid not start the adapalene 0.3%. using epiduo forte gel that she had before and was able to work up to nightly without too much dryness. using the clinda lotion 1-2 times a day with good results. on questioniong, she did not go see Dr Andrade for the mole on the R cheek. no known changes. Madhuri Hoff MD [address] [place] [address], [facility] [address], [place], [address], JEFFREY Hoff MD 04/18/2017 23:10:45 06/05/2017 text/html rash started on the L axilla a week ago. the rash also came up on the R side as well. the bumps went away. after shower yesterday did not use deodorant and wondering if that was the cause. better today. did feel lumps under the skin on and not sure if still there. no f/c, feeling well. itchy and burning. using secret deodorant stick for years without any issues. she has been doing field hockey and uses deodorant in the am and then often does not shower after practice. present with mom in the room. Madhuri Hoff MD [address] [place] [address], [facility] [address], [place], [address], JEFFREY Hoff MD 06/05/2017 09:22:01 12/06/2017 text/html acne follow upno concernsusing adapalene gel 0.3 gel once a day. she went back to the adapalene gel when she ran out of epiduo forte gel. she likes the adapalene gel better as feels it is less dryingran out of the clinda lotion and stopped usingnot using BP or acne wash currentlymild flare on the forehead, overall doing very well Madhuri Hoff MD [address] [place] [address], [address], [place], [address], JEFFREY Hoff MD 12/08/2017 22:54:39 06/06/2022 text/html COVID-19 protoco l. Patient and any caregivers present screened to confirm no fever, cough, loss of taste or smell, or shortness of breath. Patient and any caregivers deny current diagnosis or pending testing of COVID-19 or recent exposure to any individual with known or current testing for COVID-19. Patient and caregivers masked while in office. New patient visitlast seen 11/2017 spot L posterior shoulderx 2-3 monthsno symptomsnot treatingshe notes she thought it was a blackhead and her boyfriend noticed it wasp sting L lower legx 1 dayred, itchy, tinglesusing cortisone cream mole L abdomenjust to have checked 2 moles R lower leg and 2 on the L lower legwanted to make sure looked ok moles R cheekjust to have checked Madhuri Hoff MD [address] [facility], [address], [place], [address], [facility] - Madhuri Hoff MD 06/10/2022 16:47:28 OBGyn Episode No OBEpisode recorded.
== END 2024-12-04 11:56 | disposition short-term general hospital (02) ==
PROVIDERS: Emergency Provider Nurse Practitioner Family
DX: L05.01 Pilonidal cyst with abscess (principal)
CPT/HCPCS: 10080; 99212; G0463

== ENCOUNTER 2025-05-04 08:22 | Outpatient (CLI) | payer BC, SELFPAY ==
--- OUTSIDE RECORDS SUMMARY | 2025-05-04 08:35 | XMS_ITS | Referral Summary ---
Author Organization [facility] [address] Address [address] [place] [address] Phone Care Team Providers Care Dredge Lever Operator Name Role Phone Nithin Jean MD Primary Care Provider Allergies No known active allergies Medications desogestreL-ethiny [...] health examination without abnormal findings 05/29/2017 Immunizations Immunization Administration Dates Next Due DTaP 5 Pertussis 05/10/2004, 1,2000,05/14,2000 HPV, Quadrivalent 11/13/2011,07/14/2011,05/09/20 11 Hep B / HiB 04/22/2001,2000,2000 IPV 05/10/2004, 1,2000,03/16 Influenza, Quadrivalent, Cuca l Culture-based MDCK, Preservative Free, Antibiotic Free, Intramuscular 08/06/2020 Influenza, Quadrivalent, Spl it, Preservative Free, Intramuscular 08/26/2019,08/07/2017,10/07/2016 Influenza, Trivalent, IM (MDV) 08/05/2012 Influenza, Trivalent, Preser vative Free, Intramuscular 08/07/2011 MMR 05/10/2004,01/22/2001 Meningococcal MCV4P (Menactra) 05/26/2016,2010 Pneumococcal Conjugate 7-Valent 04/22/20,2000,2000,05/14 Tdap 05/09/2011 Varicella 05/25/2014,01/22/2001 Social History Tobacco Use Types Packs/Day Years Used Date Smoking Tobacco: Never Smokeless Tobacco: Never Tobacco Cessation:Counseling Given: Not Answered Alcohol Use Standard Drinks/Week Comments No 0 (1 standard drink = 0.6 oz pur e alcohol) Personal Safety Answer Date Recorded Have you ever been in or are you currently in a harmful physical or emotional relationship or is someone making you feel afraid or unsafe? Denies 12/04/2024 Comments No Sex and Gender Information Value Date Recorded Sex Assigned at Not on file Legal Sex Female 1:51 AM ENTRY CLERK Gender Identity Female 01/20/2021 9:50 AM CDT Sexual Orientation Straight 01/20/2021 9: 50 AM CDT Occupation Industry Job Start Date Job End Date Not on file Not on file Not on file Not on file Last Filed Vital Signs Vital Sign Reading Time Taken Comments Blood Pressure 139/75 12/04/2024 12:36 PM ENTRY CLERK Pulse 83 12/04/2024 4:35 PM ENTRY CLERK Temperature 36.7 C (98.1 F) 12/04/2024 12:36 PM ENTRY CLERK Respiratory Rate 14 12/04/2024 12:36 PM ENTRY CLERK Oxygen Saturation 99% 12/04/2024 4:35 PM ENTRY CLERK Inhaled Oxygen Concentration - - Weight 72.6 kg (160 lb) 12/04/2024 12:36 PM ENTRY CLERK Height 162.6 cm (5' 4) 12/04/2024 12:36 PM ENTRY CLERK Body Mass Index 27.46 12/04/2024 12:36 PM ENTRY CLERK Plan of Treatment Not on file Procedures Procedure Name Priority Date/Time Associated Diagnosis Comments PAP WITH REFLEX TO HIGH RISK HPV Routine 09/05/2023 11:37 AM ENTRY CLERK Screening for malignant neoplasm of the cervix from Last 3 Months or Most Recently Relevant to Health Maintenance Results * Pap with reflex to High Risk HPV and Genotyping (Cytology Component) (09/05/2023 11:37 AM ENTRY CLERK) Thin prep (Pap test) 09/05/2023 11:37 AM ENTRY CLERK 09/05/2023 11:37 AM ENTRY CLERK Narrative PATHOLOGY CH - 09/10/2023 1:16 PM ENTRY CLERK [facility] Department of Pathology [address] [place] [address] Final Report Note to Patients: This [...] the details. Patient Name: KASSANDRA TERRY Address: [address] [place] [address] Gender: F : 2000 (Age: 23) Service: Location: Hospital #: [id number] Patient Type: SPECIMEN Taken: 09/05/2023 Received: 09/05/2023 Accessioned:: 09/06/2023 Reported: 09/10/2023 Physician(s): MD Kelly Mcgrath MD Diagnosis: SOURCE OF SPECIMEN Imaged Thinprep Pap Test w/ Reflex HPV - Roll Handler Cytologic Material: STATEMENT OF ADEQUACY - Specimen satisfactory for interpretation; endocervical/transformation zone component absent or insufficient GENERAL CATEGORIZATION: - Negative for intraepithelial lesion or malignancy LATANYA Guadarrama(ASCP) Report Electronically Reviewed and Signed Out By LATANYA Guadarrama(ASCP) 09/10/2023 13:16:21Specimen(s) Received: A: Imaged Thinprep Pap Test w/ Reflex HPV - Roll Handler Cytologic Material Clinical History: Last Menstrual Period: [...] determined by the Surgical Pathology Department at [facility] as part of an ongoing principal quality engineer program and in compliance with federally mandated [...] characteristics determined by the Surgical Pathology Department [facility]. It has not been cleared or approved by the U. S. Food and Drug Administration. Kelly Cheng MD LAB CYTOLOGY ORDERABL ES Final Result PATHOLOGY [id number] [place] [address] from Last 3 Months or Most Recently Relevant to Health Maintenance Insurance [employer] [facility] WORKERS COMPENSATION GENERIC WORKERS COMPENSATION GENERIC Care Teams Dredge Lever Operator Relationship Specialty Start Date End Date Nithin Jean MD [address] [place] [address] PCP - General Family Medicine 12/04/24
--- OUTSIDE RECORDS SUMMARY | 2025-05-04 08:35 | XMS_ITS | Clinical Summary ---
Author Organization [facility] [address] Address [address] [place] [address] Phone Care Team Providers Care Senior Product Manager Name Role Phone Nithin Jean MD Primary [...] Conjugate 7-Valent 04/22/20,2000,2000,05/14 Tdap 05/09/2011 Varicella 05/25/2014,01/22/2001 Surgical History Surgery [...] on file Legal Sex Female 1:51 AM FISH HEADER Gender Identity Female 01/20/2021 9:50 AM CDT [...] Comments Blood Pressure 139/75 12/04/2024 12:36 PM FISH HEADER Pulse 83 12/04/2024 4:35 PM FISH HEADER Temperature 36.7 C (98.1 F) 12/04/2024 12:36 PM FISH HEADER Respiratory Rate 14 12/04/2024 12:36 PM FISH HEADER Oxygen Saturation 99% 12/04/2024 4:35 PM FISH HEADER Inhaled Oxygen Concentration - - Weight 72.6 kg (160 lb) 12/04/2024 12:36 PM FISH HEADER Height 162.6 cm (5' 4) 12/04/2024 12:36 PM FISH HEADER Body Mass Index 27.46 12/04/2024 12:36 PM FISH HEADER Plan of Treatment Health Maintenance Due Date Last Done Comments Depression Screening 2000 Hepatitis C Screening 2000 DTaP/Tdap/Td Vaccine (7 - Td or Tdap) 05/09/2021 05/09/2011, 05/10/2004, 04/22/2001, Additional history exists Cervical Cancer Screening 09/05/2024 09/05/2023, Influenza Vaccine (Season Ended) 2025 08/06/2020, 08/26/2019, 08/07/2017, Additional history exists Regular Well Visit/Exam 18-64 09/18/2025, 09/05/2023, 03/30/2022, Additional history exists Hepatitis B Screening Completed 04/22/2001 , 2000, 2000 Pneumococcal vaccine <65 Completed 001, 2000, 2000, Additional history exists HPV Vaccines Completed 11/13/2011, 06/29, 05/09/2011 Varicella Vaccines Completed 05/25/2014, 01/22/2001 Procedures Procedure Name Priority Date/Time Associated Diagnosis Comments PAP WITH REFLEX TO HIGH RISK HPV Routine 09/05/2023 11:37 AM FISH HEADER Screening for malignant neoplasm of the cervix from Last 3 Months or Most Recently Relevant to Health Maintenance Results * Pap with reflex to High Risk HPV and Genotyping (Cytology Component) (09/05/2023 11:37 AM FISH HEADER) Thin prep (Pap test) 09/05/2023 11:37 AM FISH HEADER 09/05/2023 11:37 AM FISH HEADER Narrative PATHOLOGY CH - 09/10/2023 1:16 PM FISH HEADER [facility] Department of Pathology [address] [place] [address] Final Report Note to Patients: This report [...] the details. Patient Name: KASSANDRA TERRY Address: [address] [place] [address] Gender: F : 2000 (Age: 23) Service: Location: N : [id number] Hospital #: [id number] Patient Type: SPECIMEN Taken: 09/05/2023 Received: 09/05/2023 Accessioned:: 09/06/2023 Reported: 09/10/2023 Physician(s): MD Kelly Mcgrath MD Diagnosis: SOURCE OF SPECIMEN Imaged Thinprep Pap Test w/ Reflex HPV - Brush Polisher Cytologic Material: STATEMENT OF ADEQUACY - Specimen satisfactory for interpretation; endocervical/transformation zone component absent or insufficient GENERAL CATEGORIZATION: - Negative for intraepithelial lesion or malignancy LATANYA Guadarrama(ASCP) Report Electronically Reviewed and Signed Out By LATANYA Guadarrama(ASCP) 09/10/2023 13:16:21Specimen(s) Received: A: Imaged Thinprep Pap Test w/ Reflex HPV - Brush Polisher Cytologic Material Clinical History: Last Menstrual Period: [...] determined by the Surgical Pathology Department at [facility] as part of an ongoing microbiology quality control technician program and in compliance with federally mandated [...] characteristics determined by the Surgical Pathology Department [facility]. It has not been cleared or approved by the U. S. Food and Drug Administration. Kelly Cheng MD LAB CYTOLOGY ORDERABL ES Final Result PATHOLOGY [address] [place] [address] from Last 3 Months or Most Recently Relevant to Health Maintenance Insurance [facility] WORKERS COMPENSATION GENERIC WORKERS COMPENSATION GENERIC Care Teams Senior Product Manager Relationship Specialty Start Date End Date Nithin Jean MD [address] [place] [address] PCP - General Family Medicine 12/04/24
--- OUTSIDE RECORDS SUMMARY | 2025-05-04 08:35 | XMS_ITS | Data Portability ---
Author Organization JEFFREY Laws, Telehealth Address [address], [address] [place] [address] Assessment Encounter Date Assessment Date Assessment LastModified [...] None recorded. Imaging None recorded. Medication Orders adapalene 0.3 % topical gel 2017 018 [employer] [facility] #[id number], [address] [place], [address], 2 17:25:38 clindamycin 1 % lotion 2017 018 [facility][id number], [address] [place], [address], 2 17:25:43 Differin 0.3 % topical gel 2016 017 [facility][id number], [address] [place], [address], 2 17:25:38 Patient TargetsNo targets recorded. Patient InstructionsNo instructions [...] % topical gel [facility] TO [facility] 06/06 completed Not Available Not Available Not Available Vitals None Recorded Social History Question Answer Notes LastModified by Organizat ion Details LastModified Time Tobacco Smoking Status Never Smoker JEFFREY Flynn MD 01/09/2017 15:21:26 In The 14 Days Before Symptom Onset, Have You Had Close Contact With A Laboratory-confirm ed COVID-19 While That Case Was Ill? No [email or web address] Information n ot available 06/06/2022 In The 14 Days Before Symptom Onset, Have You Had Close Contact With A Person Who Is Under Investigation For COVID-19 While That Person Was Ill? No [email or web address] Information not available 06/06/2022 What Was The Date Of Your Most Recent Tobacco Screening? 06/06/2022 [email or web address] Information not available 06/06/2022 Sun Exposure Frequent Information not available 01/09/2017 Do You Use Sunscreen Routinely? No Information not available 01/09/2017 Tanning Bed Exposure No Information not available 01/09/2017 Sex: Unknown Functional Status Question Answer Note LastModified by Organization D etails LastModified Time What is your level of alcohol consumption? None Information not available 01/09/2017 Mental Status None recorded. Family History Relationship [...] Note 525 Madhuri Hoff MD Main Office [address] [place] [address] 01/09/2017 15:01:07 01/09/2017 16:19:29 Acne vulgaris 39116774 L70.0 Melanocyti c nevus of skin of thigh 481984125 D22.72 Melanocyti c nevus of upper limb 277564211 D22.61 Melanocyti c nevus of face 868598308 D22.30 1742 Madhuri Hoff MD Main Office [address] [place] [address] 7 04/16/2017 09:59:36 04/16/2017 10:28:53 Acne vulgaris 19427906 L70.0 Melanocyti c nevus of face 375872968 D22.30 2258 Madhuri Hoff MD Main Office [address] [place] [address] 7 06/05/2017 09:01:32 06/05/2017 10:30:39 Irritant contact dermatitis 982133373 L24.3 4457 Madhuri Hoff MD Main Office [address] [place] [address] [address] [place] [address] 12/06/2017 10:42:52 12/06/2017 11:28:48 Acne vulgaris 83783839 L70.0 22546 Madhuri Hoff MD Main Office [address] [place] [address] [address] [place] [address] 06/06/2022 17:14:50 06/06/2022 17:47:56 Epidermoid cyst of skin 656635061 L72.0 Melanocyti c nevus of face 712169910 D22.30 Eruption 707788627 R21 Melanocyti c nevus of skin of thigh 422119538 D22.71 Health Concerns Section Related Observation LastModified by Organization Detai ls LastModified Time None Recorded Concern Status LastModified by Organization Details LastModified Time None Recorded Advance Directives Directive None Recorded Payers Insurance Date Sequence Insurance Name Policy Number Policy Hoyos Covered Member ID Hoyos Member ID Guarantor Name 12/06/2017 1 CIGNA [id number] Inés Terry [id number] Inés Terry 06/12/2022 1 [place] [id number] Al Harrison [id number] 001 Inés Terry Notes Date Note Type [...] to heal.present with mom. Madhuri Hoff MD [address] [place] [address], [address], [place], [address], [facility] [place] Madhuri Hoff MD 01/14/2017 22:48:47 04/16/2017 text/html acne fusays medication is working welldid not start the adapalene 0.3%. using epiduo forte gel that she had before and was able to work up to nightly without too much dryness. using the clinda lotion 1-2 times a day with good results. on questioniong, she did not go see Dr Andarde for the mole on the R cheek. no known changes. Madhuri Hoff MD [address] [place] [address], [address], [place], [address], JEFFREY Hoff MD 04/18/2017 23:10:45 06/05/2017 text/html [...] mom in the room. Madhuri Hoff MD [address] [place] [address], [facility] [address], [place], [address], JEFFREY Hoff MD 06/05/2017 09:22:01 12/06/2017 text/html [...] overall doing very well Madhuri Hoff MD [address] [place] [address], [address], [place], [address], JEFFREY Hoff MD 12/08/2017 22:54:39 06/06/2022 text/html [...] to have checked Madhuri Hoff MD [address] [facility], [address], [place], [address], [facility] [place] Madhuri Hoff MD 06/10/2022 16:47:28 OBGyn Episode No OBEpisode recorded.
[2025-05-04 09:07] LABS: Hematocrit 44.5 % (37.0-47.0); Hemoglobin 15.1 g/dL (12.0-15.0); Immature Granulocyte Percent A 0.3 % (0-0.5); Lymphocytes Absolute Auto 1.24 K/mm3 (0.9-3.2); Mean Corpuscular HGB Conc 33.9 g/dl (32-36); Mean Corpuscular Hemoglobin 31.5 pg (26-34); Mean Corpuscular Volume 92.7 fl (80-100); Nucleated Red Blood Cells Absolute Auto 0.000 K/mm3 (0.0-0.012); Nucleated Red Blood Cells Perc 0.0 % (0.0-0.2); Platelet Count Result 183 k/mm3 (150-375); Red Blood Count 4.80 M/mm3 (4.2-5.4); White Blood Count 6.9 K/mm3 (4.5-10.0)
[2025-05-04 09:19] LABS: Alanine Aminotransferase 31 U/L (6-35); Albumin Level 4.8 g/dL (3.5-5.1); Alkaline Phosphatase 64 U/L (38-126); Anion Gap 8 mmol/L (4-12); Aspartate Amino Transferase 40 U/L (14-36); Bilirubin,Total 0.8 mg/dL (0.2-1.3); Blood Urea Nitrogen 12 mg/dL (7-17); Calcium 9.5 mg/dL (8.4-10.2); Carbon Dioxide 25 mmol/L (22-30); Chloride 104 mmol/L (98-107); Cholesterol 236 mg/dL (0-200); Estimated Glomerular Filt Rate > 60; Glucose 122 mg/dL (65-110); HDL Direct 95 mg/dL; Potassium 4.2 mmol/L (3.4-5.0); Sodium 137 mmol/L (137-145); Total Protein 8.4 g/dL (6.3-8.2); Triglycerides 54 mg/dL (<150)
[2025-05-04 09:50] LABS: Thyroid Stimulating Hormone 0.584 uIU/mL (0.465-4.680)
== END 2025-05-04 08:23 | disposition home or self-care (01) ==
LOC: ANHLAB 08:24
PROVIDERS: PCP Family Medicine; Visit Provider Nurse Practitioner Adult Health
DX: Z13.220 Encounter for screening for lipoid disorders (principal); E04.9 Nontoxic goiter, unspecified; R42 Dizziness and giddiness; D72.9 Disorder of white blood cells, unspecified
CPT/HCPCS: 36415; 80053; 80061; 84443; 85025

== ENCOUNTER 2025-05-12 08:54 | Outpatient (CLI) | payer BC, SELFPAY ==
--- OUTSIDE RECORDS SUMMARY | 2025-05-12 09:07 | XMS_ITS | Referral Summary ---
Author Organization [facility] [address] Address [address] [place] [address] Phone Care Team Providers Care Racing Mechanic Name Role Phone Nithin Jean MD Primary [...] on file Legal Sex Female 1:51 AM PEARL RESTORER Gender Identity Female 01/20/2021 9:50 AM CDT Sexual Orientation Straight 01/20/2021 9: 50 AM CDT Occupation Industry Job Start Date Job End Date Not on file Not on file Not on file Not on file Last Filed Vital Signs Vital Sign Reading Time Taken Comments Blood Pressure 139/75 12/04/2024 12:36 PM PEARL RESTORER Pulse 83 12/04/2024 4:35 PM PEARL RESTORER Temperature 36.7 C (98.1 F) 12/04/2024 12:36 PM PEARL RESTORER Respiratory Rate 14 12/04/2024 12:36 PM PEARL RESTORER Oxygen Saturation 99% 12/04/2024 4:35 PM PEARL RESTORER Inhaled Oxygen Concentration - - Weight 72.6 kg (160 lb) 12/04/2024 12:36 PM PEARL RESTORER Height 162.6 cm (5' 4) 12/04/2024 12:36 PM PEARL RESTORER Body Mass Index 27.46 12/04/2024 12:36 PM PEARL RESTORER Plan of Treatment Not on file Procedures Procedure Name Priority Date/Time Associated Diagnosis Comments PAP WITH REFLEX TO HIGH RISK HPV Routine 09/05/2023 11:37 AM PEARL RESTORER Screening for malignant neoplasm of the cervix from Last 3 Months or Most Recently Relevant to Health Maintenance Results * Pap with reflex to High Risk HPV and Genotyping (Cytology Component) (09/05/2023 11:37 AM PEARL RESTORER) Thin prep (Pap test) 09/05/2023 11:37 AM PEARL RESTORER 09/05/2023 11:37 AM PEARL RESTORER Narrative PATHOLOGY CH - 09/10/2023 1:16 PM PEARL RESTORER [facility] Department of Pathology [address] [place] [address] Final Report Note to Patients: This [...] the details. Patient Name: KASSANDRA TERRY Address: [address] [place] [address] Gender: F : 2000 (Age: 23) Service: Location: Hospital #: [id number] Patient Type: SPECIMEN Taken: 09/05/2023 Received: 09/05/2023 Accessioned:: 09/06/2023 Reported: 09/10/2023 Physician(s): MD Kelly Mcgrath MD Diagnosis: SOURCE OF SPECIMEN Imaged Thinprep Pap Test w/ Reflex HPV - Director Selection And Administration Cytologic Material: STATEMENT OF ADEQUACY - Specimen satisfactory for interpretation; endocervical/transformation zone component absent or insufficient GENERAL CATEGORIZATION: - Negative for intraepithelial lesion or malignancy LATANYA Guadarrama(ASCP) Report Electronically Reviewed and Signed Out By LATANYA Guadarrama(ASCP) 09/10/2023 13:16:21Specimen(s) Received: A: Imaged Thinprep Pap Test w/ Reflex HPV - Director Selection And Administration Cytologic Material Clinical History: Last Menstrual Period: [...] determined by the Surgical Pathology Department at [facility] as part of an ongoing quality improvement analyst program and in compliance with federally [...] characteristics determined by the Surgical Pathology Department [facility]. It has not been cleared or approved by the U. S. Food and Drug Administration. Kelly Cheng MD LAB CYTOLOGY ORDERABL ES Final Result PATHOLOGY [address] [place] [address] from Last 3 Months or Most Recently Relevant to Health Maintenance Insurance [place] [employer] [place] [facility] WORKERS COMPENSATION GENERIC WORKERS COMPENSATION GENERIC Care Teams Racing Mechanic Relationship Specialty Start Date End Date Nithin eJan MD [address] [place] [address] PCP - General Family Medicine 12/04/24
--- OUTSIDE RECORDS SUMMARY | 2025-05-12 09:07 | XMS_ITS | Clinical Summary ---
Author Organization [facility] [address] Address [address] [place] [address] Phone Care Team Providers Care Crepe Laminator Operator Name Role Phone Nithin Jean MD [...] on file Legal Sex Female 1:51 AM GEAR HOBBER Gender Identity Female 01/20/2021 9:50 AM CDT [...] Comments Blood Pressure 139/75 12/04/2024 12:36 PM GEAR HOBBER Pulse 83 12/04/2024 4:35 PM GEAR HOBBER Temperature 36.7 C (98.1 F) 12/04/2024 12:36 PM GEAR HOBBER Respiratory Rate 14 12/04/2024 12:36 PM GEAR HOBBER Oxygen Saturation 99% 12/04/2024 4:35 PM GEAR HOBBER Inhaled Oxygen Concentration - - Weight 72.6 kg (160 lb) 12/04/2024 12:36 PM GEAR HOBBER Height 162.6 cm (5' 4) 12/04/2024 12:36 PM GEAR HOBBER Body Mass Index 27.46 12/04/2024 12:36 PM GEAR HOBBER Plan of Treatment Health Maintenance Due Date [...] HIGH RISK HPV Routine 09/05/2023 11:37 AM GEAR HOBBER Screening for malignant neoplasm of the cervix from Last 3 Months or Most Recently Relevant to Health Maintenance Results * Pap with reflex to High Risk HPV and Genotyping (Cytology Component) (09/05/2023 11:37 AM GEAR HOBBER) Thin prep (Pap test) 09/05/2023 11:37 AM GEAR HOBBER 09/05/2023 11:37 AM GEAR HOBBER Narrative PATHOLOGY CH - 09/10/2023 1:16 PM GEAR HOBBER [facility] Department of Pathology [address] [place] [address] Final Report Note to Patients: This report [...] the details. Patient Name: KASSANDRA TERRY Address: [address] [place] [address] Gender: F : 2000 (Age: 23) Service: Location: N : [id number] Hospital #: [id number] Patient Type: SPECIMEN Taken: 09/05/2023 Received: 09/05/2023 Accessioned:: 09/06/2023 Reported: 09/10/2023 Physician(s): MD Kelly Mcgrath MD Diagnosis: SOURCE OF SPECIMEN Imaged Thinprep Pap Test w/ Reflex HPV - Front Edger Cytologic Material: STATEMENT OF ADEQUACY - Specimen satisfactory for interpretation; endocervical/transformation zone component absent or insufficient GENERAL CATEGORIZATION: - Negative for intraepithelial lesion or malignancy LATANYA Guadarrama(ASCP) Report Electronically Reviewed and Signed Out By LATANYA Guadarrama(ASCP) 09/10/2023 13:16:21Specimen(s) Received: A: Imaged Thinprep Pap Test w/ Reflex HPV - Front Edger Cytologic Material Clinical History: Last Menstrual Period: [...] determined by the Surgical Pathology Department at [facility] as part of an ongoing research quality assurance specialist program and in compliance with federally mandated [...] LAB CYTOLOGY ORDERABL ES Final Result PATHOLOGY [address] [place] [address] from Last 3 Months or Most Recently Relevant to Health Maintenance Insurance [facility] WORKERS COMPENSATION GENERIC WORKERS COMPENSATION GENERIC Care Teams Crepe Laminator Operator Relationship Specialty Start Date End Date Nithin Jean MD [address] [place] [address] PCP - General Family Medicine 12/04/24
--- OUTSIDE RECORDS SUMMARY | 2025-05-12 09:07 | XMS_ITS | Data Portability ---
Author Organization JEFFREY Laws, Telehealth Address [address], [address] [place] [address] Assessment Encounter Date Assessment Date Assessment LastModified [...] adapalene 0.3 % topical gel 2017 018 [employer] [facility]/Pharmacy #[id number], [address] [place], [address], 2 17:25:38 clindamycin 1 % lotion 2017 018 [facility] #[id number], [address] [place], [address], 2 17:25:43 Differin 0.3 % topical gel 2016 017 [facility] #[id number], [address] [place], [address], 2 17:25:38 Patient TargetsNo targets recorded. Patient [...] % topical gel [facility]PL[facility] TO [facility] 06/06 completed Not Available Not Available Not Available Vitals None Recorded Social History Question Answer Notes LastModified by Organizat ion Details LastModified Time Tobacco Smoking Status Never Smoker JEFFREY Flynn MD 01/09/2017 15:21:26 In The 14 Days Before Symptom Onset, Have You Had Close Contact With A Laboratory-confirm ed COVID-19 While That Case Was Ill? No [email or web address] Information n ot available 06/06/2022 In The 14 Days Before Symptom Onset, Have You Had Close Contact With A Person Who Is Under Investigation For COVID-19 While That Person Was Ill? No [email or web address] Information not available 06/06/2022 What Was The Date Of Your Most Recent Tobacco Screening? 06/06/2022 [email or web address] Information not available 06/06/2022 Sun Exposure Frequent [...] Note 525 Madhuri Hoff MD Main Office [address] [place] [address] 01/09/2017 15:01:07 01/09/2017 16:19:29 Acne vulgaris 42082065 L70.0 Melanocyti c nevus of skin of thigh 249024235 D22.72 Melanocyti c nevus of upper limb 766746755 D22.61 Melanocyti c nevus of face 435780760 D22.30 1742 Madhuri Hoff MD Main Office [address] [place] [address] 04/16/2017 09:59:36 04/16/2017 10:28:53 Acne vulgaris 92893779 L70.0 Melanocyti c nevus of face 038350080 D22.30 2258 Madhuri Hoff MD Main Office [address] [place] [address] 06/05/2017 09:01:32 06/05/2017 10:30:39 Irritant contact dermatitis 692945289 L24.3 4457 Madhuri Hoff MD Main Office [address] [place] [address] [address] [place] [address] 12/06/2017 10:42:52 12/06/2017 11:28:48 Acne vulgaris 58234801 L70.0 84293 Madhuri Hoff MD Main Office [address] [place] [address] [address] [place] [address] 06/06/2022 17:14:50 06/06/2022 17:47:56 Epidermoid cyst of skin 204847238 L72.0 Melanocyti c nevus of face 336995565 D22.30 Eruption 258467304 R21 Melanocyti c nevus of skin of thigh 746523924 D22.71 Health Concerns Section Related Observation LastModified by Organization Detai ls LastModified Time None Recorded Concern Status LastModified by Organization Details LastModified Time None Recorded Advance Directives Directive None Recorded Payers Insurance Date Sequence Insurance Name Policy Number Policy Hoyos Covered Member ID Hoyos Member ID Guarantor Name 12/06/2017 1 CIGNA [id number] Inés Terry [id number] Inés Terry 06/12/2022 1 [place] [id number] Al Harrison [id number] Inés Terry Notes Date Note Type [...] to heal.present with mom. Madhuri Hoff MD [address] [place] [address], [address], [place], [address], [facility] [place] Madhuri Hoff MD 01/14/2017 22:48:47 04/16/2017 [...] cheek. no known changes. Madhuri Hoff MD [address] [place] [address], [address], [place], [address], JEFFREY Hoff MD 04/18/2017 23:10:45 06/05/2017 text/html [...] mom in the room. Madhuri Hoff MD [address] [place] [address], [facility] [address], [place], [address], JEFFREY Hoff MD 06/05/2017 09:22:01 12/06/2017 text/html [...] overall doing very well Madhuri Hoff MD [address] [place] [address], [address], [place], [address], JEFFREY Hoff MD 12/08/2017 22:54:39 06/06/2022 text/html [...] to have checked Madhuri Hoff MD [address] [facility], [address], [place], [address], [facility] [place] Madhuri Hoff MD 06/10/2022 16:47:28 OBGyn Episode No OBEpisode recorded.
[2025-05-12 09:42] LABS: Alanine Aminotransferase 33 U/L (6-35); Albumin Level 4.2 g/dL (3.5-5.1); Alkaline Phosphatase 61 U/L (38-126); Anion Gap 7 mmol/L (4-12); Aspartate Amino Transferase 38 U/L (14-36); Bilirubin,Total 0.9 mg/dL (0.2-1.3); Blood Urea Nitrogen 11 mg/dL (7-17); Calcium 8.8 mg/dL (8.4-10.2); Carbon Dioxide 22 mmol/L (22-30); Chloride 109 mmol/L (98-107); Estimated Glomerular Filt Rate > 60; Glucose 105 mg/dL (65-110); Osmolality Calculated 285 mOsm/kg (285-295); Potassium 4.2 mmol/L (3.4-5.0); Sodium 138 mmol/L (137-145); Total Protein 6.9 g/dL (6.3-8.2)
== END 2025-05-12 08:55 | disposition home or self-care (01) ==
PROVIDERS: PCP Family Medicine; Visit Provider Nurse Practitioner Adult Health
DX: R74.8 Abnormal levels of other serum enzymes (principal); R73.01 Impaired fasting glucose
CPT/HCPCS: 36415; 80053

== ENCOUNTER 2025-05-12 14:26 | Outpatient (RCR) | payer BC, SELFPAY ==
[2025-05-12 14:31] VITALS: BMI 33.2
== END 2025-07-27 09:09 | disposition home or self-care (01) ==
LOC: ANHDMC 14:26
PROVIDERS: PCP Family Medicine; Visit Provider Nurse Practitioner Adult Health
DX: R63.5 Abnormal weight gain (principal); Z71.3 Dietary counseling and surveillance
CPT/HCPCS: 97802

== ENCOUNTER 2025-05-18 07:30 | Outpatient (CLI) | payer BC, SELFPAY ==
--- OUTSIDE RECORDS SUMMARY | 2025-05-18 07:34 | XMS_ITS | Referral Summary ---
Author Organization [facility] [address] Address [address] [place] [address] Phone Care Team Providers Care Forest Pathologist Name Role Phone Nithin Jean MD Primary [...] on file Legal Sex Female 1:51 AM BURR SANDER Gender Identity Female 01/20/2021 9:50 AM CDT Sexual Orientation Straight 01/20/2021 9: 50 AM CDT Occupation Industry Job Start Date Job End Date Not on file Not on file Not on file Not on file Last Filed Vital Signs Vital Sign Reading Time Taken Comments Blood Pressure 139/75 12/04/2024 12:36 PM BURR SANDER Pulse 83 12/04/2024 4:35 PM BURR SANDER Temperature 36.7 C (98.1 F) 12/04/2024 12:36 PM BURR SANDER Respiratory Rate 14 12/04/2024 12:36 PM BURR SANDER Oxygen Saturation 99% 12/04/2024 4:35 PM BURR SANDER Inhaled Oxygen Concentration - - Weight 72.6 kg (160 lb) 12/04/2024 12:36 PM BURR SANDER Height 162.6 cm (5' 4) 12/04/2024 12:36 PM BURR SANDER Body Mass Index 27.46 12/04/2024 12:36 PM BURR SANDER Plan of Treatment Not on file Procedures Procedure Name Priority Date/Time Associated Diagnosis Comments PAP WITH REFLEX TO HIGH RISK HPV Routine 09/05/2023 11:37 AM BURR SANDER Screening for malignant neoplasm of the cervix from Last 3 Months or Most Recently Relevant to Health Maintenance Results * Pap with reflex to High Risk HPV and Genotyping (Cytology Component) (09/05/2023 11:37 AM BURR SANDER) Thin prep (Pap test) 09/05/2023 11:37 AM BURR SANDER 09/05/2023 11:37 AM BURR SANDER Narrative PATHOLOGY CH - 09/10/2023 1:16 PM BURR SANDER [facility] Department of Pathology [address] [place] [address] Final Report Note to Patients: This [...] the details. Patient Name: KASSANDRA TERRY Address: [address] [place] [address] Gender: F : 2000 (Age: 23) Service: Location: Hospital #: [id number] Patient Type: SPECIMEN Taken: 09/05/2023 Received: 09/05/2023 Accessioned:: 09/06/2023 Reported: 09/10/2023 Physician(s): MD Kelly Mcgrath MD Diagnosis: SOURCE OF SPECIMEN Imaged Thinprep Pap Test w/ Reflex HPV - Game Farm Helper Cytologic Material: STATEMENT OF ADEQUACY - Specimen satisfactory for interpretation; endocervical/transformation zone component absent or insufficient GENERAL CATEGORIZATION: - Negative for intraepithelial lesion or malignancy LATANYA Guadarrama(ASCP) Report Electronically Reviewed and Signed Out By LATANYA Guadarrama(ASCP) 09/10/2023 13:16:21Specimen(s) Received: A: Imaged Thinprep Pap Test w/ Reflex HPV - Game Farm Helper Cytologic Material Clinical History: Last Menstrual Period: [...] determined by the Surgical Pathology Department at [facility] as part of an ongoing manufacturing quality engineer program and in compliance with [...] characteristics determined by the Surgical Pathology Department [facility]. It has not been cleared or approved by the U. S. Food and Drug Administration. Kelly Cheng MD LAB CYTOLOGY ORDERABL ES Final Result PATHOLOGY [address] [place] [address] from Last 3 Months or Most Recently Relevant to Health Maintenance Insurance [employer] [email or web address] [place] [facility] WORKERS COMPENSATION GENERIC WORKERS COMPENSATION GENERIC Care Teams Forest Pathologist Relationship Specialty Start Date End Date Nithin Jean MD [address] [place] [address] PCP - General Family Medicine 12/04/24
--- OUTSIDE RECORDS SUMMARY | 2025-05-18 07:34 | XMS_ITS | Clinical Summary ---
Author Organization [facility] [address] Address [address] [place] [address] Phone Care Team Providers Care Intake Man Name Role Phone Nithin Jean MD Primary Care Provider [phone] Allergies No known active allergies Medications desogestreL-ethiny [...] on file Legal Sex Female 1:51 AM BOX SEALING MACHINE FEEDER Gender Identity Female 01/20/2021 9:50 AM CDT [...] Comments Blood Pressure 139/75 12/04/2024 12:36 PM BOX SEALING MACHINE FEEDER Pulse 83 12/04/2024 4:35 PM BOX SEALING MACHINE FEEDER Temperature 36.7 C (98.1 F) 12/04/2024 12:36 PM BOX SEALING MACHINE FEEDER Respiratory Rate 14 12/04/2024 12:36 PM BOX SEALING MACHINE FEEDER Oxygen Saturation 99% 12/04/2024 4:35 PM BOX SEALING MACHINE FEEDER Inhaled Oxygen Concentration - - Weight 72.6 kg (160 lb) 12/04/2024 12:36 PM BOX SEALING MACHINE FEEDER Height 162.6 cm (5' 4) 12/04/2024 12:36 PM BOX SEALING MACHINE FEEDER Body Mass Index 27.46 12/04/2024 12:36 PM BOX SEALING MACHINE FEEDER Plan of Treatment Health Maintenance Due Date [...] HIGH RISK HPV Routine 09/05/2023 11:37 AM BOX SEALING MACHINE FEEDER Screening for malignant neoplasm of the cervix from Last 3 Months or Most Recently Relevant to Health Maintenance Results * Pap with reflex to High Risk HPV and Genotyping (Cytology Component) (09/05/2023 11:37 AM BOX SEALING MACHINE FEEDER) Thin prep (Pap test) 09/05/2023 11:37 AM BOX SEALING MACHINE FEEDER 09/05/2023 11:37 AM BOX SEALING MACHINE FEEDER Narrative PATHOLOGY CH - 09/10/2023 1:16 PM BOX SEALING MACHINE FEEDER [facility] Department of Pathology [address] [place] [address] Final Report Note to Patients: This report [...] the details. Patient Name: KASSANDRA TERRY Address: [address] [place] [address] Gender: F : 2000 (Age: 23) Service: Location: N : [id number] Hospital #: [id number] Patient Type: SPECIMEN Taken: 09/05/2023 Received: 09/05/2023 Accessioned:: 09/06/2023 Reported: 09/10/2023 Physician(s): MD Kelly Mcgrath MD Diagnosis: SOURCE OF SPECIMEN Imaged Thinprep Pap Test w/ Reflex HPV - Managing Director Atlas Cytologic Material: STATEMENT OF ADEQUACY - Specimen satisfactory for interpretation; endocervical/transformation zone component absent or insufficient GENERAL CATEGORIZATION: - Negative for intraepithelial lesion or malignancy LATANYA Guadarrama(ASCP) Report Electronically Reviewed and Signed Out By LATANYA Guadarrama(ASCP) 09/10/2023 13:16:21Specimen(s) Received: A: Imaged Thinprep Pap Test w/ Reflex HPV - Managing Director Atlas Cytologic Material Clinical History: Last Menstrual Period: [...] determined by the Surgical Pathology Department at [facility] as part of an ongoing quality inspector program and in compliance with federally mandated [...] characteristics determined by the Surgical Pathology Department [facility]. It has not been cleared or approved by the U. S. Food and Drug Administration. Kelly Cheng MD LAB CYTOLOGY ORDERABL ES Final Result PATHOLOGY [address] [place] [address] from Last 3 Months or Most Recently Relevant to Health Maintenance Insurance [facility] OOS [facility] WORKERS COMPENSATION GENERIC WORKERS COMPENSATION GENERIC Care Teams Intake Man Relationship Specialty Start Date End Date Nithin Jean MD [address] [place] [address] PCP - General Family Medicine 12/04/24
--- OUTSIDE RECORDS SUMMARY | 2025-05-18 07:34 | XMS_ITS | Data Portability ---
Author Organization [facility]FFREY Laws, Telehealth Address [address], [address] [place] [address] Assessment Encounter Date Assessment Date Assessment LastModified [...] adapalene 0.3 % topical gel 2017 018 [facility] #[id number], [address] [place], [address], 2 17:25:38 clindamycin 1 % lotion 2017 018 [id number], [address] [place], [address], 2 17:25:43 Differin 0.3 % topical gel 2016 017 [id number], [address] [place], [address], 2 17:25:38 Patient TargetsNo targets recorded. Patient [...] % topical gel APPLY TO THE FACE [facility] 06/06 completed Not Available Not Available Not Available Vitals None Recorded Social History Question Answer Notes LastModified by Organizat ion Details LastModified Time Tobacco Smoking Status Never Smoker JEFFREY Flynn MD 01/09/2017 15:21:26 In The 14 Days Before Symptom Onset, Have You Had Close Contact With A Laboratory-confirm ed COVID-19 While That Case Was Ill? No [email or web address] Information n ot available 06/06/2022 In The 14 Days Before Symptom Onset, Have You Had Close Contact With A Person Who Is Under Investigation For COVID-19 While That Person Was Ill? No [email or web address] Information not available 06/06/2022 What Was The Date Of Your Most Recent Tobacco Screening? 06/06/2022 [email or web address] Information not available 06/06/2022 Sun Exposure Frequent [...] N Defibrillator N Cancer N Stroke N Hypothyroidism N Asthma N Lupus N HIV/AIDS N Pacemaker N Anemia N Psoriasis N Hepatitis N Heart Disease N Hypertension N Gynecological HistoryNo gynecological history recorded. Obstetrics History GPAL:G 0 P 0 0 0 0 Past Encounters Encounter ID Performer Location Encounter Start Date Encounter Closed Date Diagnosis/Indication Diagnosis SNOMED-CT Code Diagnosis ICD10 Code Diagnosis Note 525 Madhuri Hoff MD Main Office [address] [place] [address] 7 01/09/2017 15:01:07 01/09/2017 16:19:29 Acne vulgaris 72414583 L70.0 Melanocyti c nevus of skin of thigh 709958174 D22.72 Melanocyti c nevus of upper limb 989772697 D22.61 Melanocyti c nevus of face 655897963 D22.30 [id number] Madhuri Hoff MD Main Office [address] [place] [address] 7 04/16/2017 09:59:36 04/16/2017 10:28:53 Acne vulgaris 92369182 L70.0 Melanocyti c nevus of face 699941631 D22.30 [id number] Madhuri Hoff MD Main Office [address] [place] [address]793 7 06/05/2017 09:01:32 06/05/2017 10:30:39 Irritant contact dermatitis 641018770 L24.3 [id number] Madhuri Hoff MD Main Office [address] [place] [address] [address] [place] [address] 12/06/2017 10:42:52 12/06/2017 11:28:48 Acne vulgaris 83247358 L70.0 [id number] Madhuri Hoff MD Main Office [address] [place] [address] [address] [place] [address] 06/06/2022 17:14:50 06/06/2022 17:47:56 Epidermoid cyst of skin 646142311 L72.0 Melanocyti c nevus of face 149261623 D22.30 Eruption 610584093 R21 Melanocyti c nevus of skin of thigh 805338650 D22.71 Health Concerns Section Related Observation LastModified by Organization Detai ls LastModified Time None Recorded Concern Status LastModified by Organization Details LastModified Time None Recorded Advance Directives Directive None Recorded Payers Insurance Date Sequence Insurance Name Policy Number Policy Hoyos Covered Member ID Hoyos Member ID Guarantor Name 12/06/2017 1 CIGNA [id number] Inés Terry [id number] Inés Terry 06/12/2022 1 [place] [id number] Al Harrison [id number] 001 Inés Terry Notes Date Note Type [...] to heal.present with mom. Madhuri Hoff MD [address] [place] [address], [address], [place], [address], [facility] - Madhuri Hoff MD 01/14/2017 22:48:47 04/16/2017 [...] cheek. no known changes. Madhuri Hoff MD [address] [place] [address], [address], [place], [address], JEFFREY Hoff MD 04/18/2017 23:10:45 06/05/2017 text/html [...] mom in the room. Madhuri Hoff MD [address] [place] [address], [facility] [address], [place], [address], JEFFREY Hoff MD 06/05/2017 09:22:01 12/06/2017 text/html [...] overall doing very well Madhuri Hoff MD [address] [place] [address], [address], [place], [address], JEFFREY Hoff MD 12/08/2017 22:54:39 06/06/2022 text/html [...] to have checked Madhuri Hoff MD [address] [facility], [address], [place], [address], [facility] [place] - Madhuri Hoff MD 06/10/2022 16:47:28 OBGyn Episode No OBEpisode recorded.
== END 2025-05-18 07:31 | disposition home or self-care (01) ==
LOC: ANHLAB 07:32
PROVIDERS: PCP Family Medicine; Visit Provider Nurse Practitioner Adult Health
DX: Z13.220 Encounter for screening for lipoid disorders (principal); E04.9 Nontoxic goiter, unspecified; R42 Dizziness and giddiness; D72.9 Disorder of white blood cells, unspecified; R63.4 Abnormal weight loss
CPT/HCPCS: 82533

== ENCOUNTER 2025-08-28 11:13 | Emergency (ER) | payer BC, SELFPAY ==
[2025-08-28 11:24] VITALS: BP 131/93; PULSE 105; RESP 18; TEMP 36.5; O2SAT 98
--- OUTSIDE RECORDS SUMMARY | 2025-08-28 11:30 | XMS_ITS | Clinical Summary ---
Author Organization [facility] [address] Address [address] [place] [address] Phone Care Team Providers Care Char Puller Name Role Phone Nithin Jean MD Primary [...] on file Legal Sex Female 1:51 AM PICKLER HELPER Gender Identity Female 01/20/2021 9:50 AM CDT [...] Comments Blood Pressure 139/75 12/04/2024 12:36 PM PICKLER HELPER Pulse 83 12/04/2024 4:35 PM PICKLER HELPER Temperature 36.7 C (98.1 F) 12/04/2024 12:36 PM PICKLER HELPER Respiratory Rate 14 12/04/2024 12:36 PM PICKLER HELPER Oxygen Saturation 99% 12/04/2024 4:35 PM PICKLER HELPER Inhaled Oxygen Concentration - - Weight 72.6 kg (160 lb) 12/04/2024 12:36 PM PICKLER HELPER Height 162.6 cm (5' 4) 12/04/2024 12:36 PM PICKLER HELPER Body Mass Index 27.46 12/04/2024 12:36 PM PICKLER HELPER Plan of Treatment Health Maintenance Due Date Last Done Comments Depression Screening 2000 Hepatitis C Screening 2000 DTaP/Tdap/Td Vaccine (7 - Td or Tdap) 05/09/2021 05/09/2011, 05/10/2004, 04/22/2001, Additional history exists Cervical Cancer Screening 09/05/2024 09/05/2023, Influenza Vaccine (#1) 2025 , 08/26/2019, 08/07/2017, Additional history exists Regular Well Visit/Exam 18-64 09/18/2025, 09/05/2023, 03/30/2022, Additional history exists Hepatitis B Screening Completed 04/22/2001 , 2000, 2000 Pneumococcal vaccine <65 Completed 001, 2000, 2000, Additional history exists HPV Vaccines Completed 11/13/2011, 06/29, 05/09/2011 Varicella Vaccines Completed 05/25/2014, 01/22/2001 Procedures Procedure Name Priority Date/Time Associated Diagnosis Comments PAP WITH REFLEX TO HIGH RISK HPV Routine 09/05/2023 11:37 AM PICKLER HELPER Screening for malignant neoplasm of the cervix from Last 3 Months or Most Recently Relevant to Health Maintenance Results * Pap with reflex to High Risk HPV and Genotyping (Cytology Component) (09/05/2023 11:37 AM PICKLER HELPER) Thin prep (Pap test) 09/05/2023 11:37 AM PICKLER HELPER 09/05/2023 11:37 AM PICKLER HELPER Narrative PATHOLOGY CH - 09/10/2023 1:16 PM PICKLER HELPER [facility] Department of Pathology [address] [place] [address] Final Report Note to Patients: This report [...] the details. Patient Name: KASSANDRA TERRY Address: [address] [place] [address] Gender: F : 2000 (Age: 23) Service: Location: N : [id number] Hospital #: [id number] Patient Type: SPECIMEN Taken: 09/05/2023 Received: 09/05/2023 Accessioned:: 09/06/2023 Reported: 09/10/2023 Physician(s): MD Kelly Mcgrath MD Diagnosis: SOURCE OF SPECIMEN Imaged Thinprep Pap Test w/ Reflex HPV - Cribbing Setter Cytologic Material: STATEMENT OF ADEQUACY - Specimen satisfactory for interpretation; endocervical/transformation zone component absent or insufficient GENERAL CATEGORIZATION: - Negative for intraepithelial lesion or malignancy LATANYA Guadarrama(ASCP) Report Electronically Reviewed and Signed Out By LATANYA Guadarrama(ASCP) 09/10/2023 13:16:21Specimen(s) Received: A: Imaged Thinprep Pap Test w/ Reflex HPV - Cribbing Setter Cytologic Material Clinical History: Last Menstrual Period: [...] determined by the Surgical Pathology Department at [facility] as part of an ongoing quality control assistant program and in compliance with federally mandated [...] characteristics determined by the Surgical Pathology Department [facility]. It has not been cleared or approved by the [place]. S. Food and Drug Administration. Kelly Cheng MD LAB CYTOLOGY ORDERABL ES Final Result PATHOLOGY [address] [place] [address] from Last 3 Months or Most Recently Relevant to Health Maintenance Insurance [facility] WORKERS COMPENSATION GENERIC WORKERS COMPENSATION GENERIC Care Teams Char Puller Relationship Specialty Start Date End Date Nithin Jean MD [address] [place] [address] PCP - General Family Medicine 12/04/24
--- OUTSIDE RECORDS SUMMARY | 2025-08-28 11:30 | XMS_ITS | Data Portability ---
Author Organization JEFFREY Laws, Telehealth Address [address], [address] [place] [address] Assessment Encounter Date Assessment Date Assessment LastModified [...] adapalene 0.3 % topical gel 2017 018 [facility]armacy #[id number], [address] [place], [address], 2 17:25:38 clindamycin 1 % lotion 2017 018 [facility] #[id number], [address] [place], [address], 2 17:25:43 Differin 0.3 % topical gel 2016 017 [facility] #[id number], [address] [place], [address], 2 17:25:38 Patient TargetsNo targets recorded. Patient [...] % topical gel APPLY TO THE FACE [facility] 06/06 completed Not Available Not Available Not Available Vitals None Recorded Social History Question Answer Notes LastModified by Organizat ion Details LastModified Time Tobacco Smoking Status Never Smoker JEFFREY Flynn MD 01/09/2017 15:21:26 In The 14 Days Before Symptom Onset, Have You Had Close Contact With A Laboratory-confirm ed COVID-19 While That Case Was Ill? No Information n ot available 06/06/2022 In The 14 Days Before Symptom Onset, Have You Had Close Contact With A Person Who Is Under Investigation For COVID-19 While That Person Was Ill? No [email or web address] Information not available 06/06/2022 What Was The Date Of Your Most Recent Tobacco Screening? 06/06/2022 Information not available 06/06/2022 Sun Exposure Frequent [...] Diagnosis SNOMED-CT Code Diagnosis ICD10 Code Diagnosis IMO Codes Diagnosis Note 525 Madhuri Hoff MD Main Office [address] [place] [address] 01/09/2017 15:01:07 01/09/2017 16:19:29 Acne vulgaris 06033468 L70.0 Melanocyti c nevus of skin of thigh 814987964 D22.72 Melanocyti c nevus of upper limb 139500102 D22.61 Melanocyti c nevus of face 438045113 D22.30 [id number] Madhuri Hoff MD Main Office [address] [place] [address] 04/16/2017 09:59:36 04/16/2017 10:28:53 Acne vulgaris 85589678 L70.0 Melanocyti c nevus of face 447220763 D22.30 [id number] Madhuri Hoff MD Main Office [address] [place] [address] 06/05/2017 09:01:32 06/05/2017 10:30:39 Irritant contact dermatitis 024745584 L24.3 [id number] Madhuri Hoff MD Main Office [address] [place] [address] [address] [place] [address] 12/06/2017 10:42:52 12/06/2017 11:28:48 Acne vulgaris 00032963 L70.0 [id number] Madhuri Hoff MD Main Office [address] [facility] [address] [place] [address] 06/06/2022 17:14:50 06/06/2022 17:47:56 Epidermoid cyst of skin 695329666 L72.0 Melanocyti c nevus of face 234514772 D22.30 Eruption 128075378 R21 Melanocyti c nevus of skin of thigh 164231193 D22.71 Health Concerns Section Related Observation LastModified by Organization Detai ls LastModified Time None Recorded Concern Status LastModified by Organization Details LastModified Time None Recorded Advance Directives Directive None Recorded Payers Insurance Date Sequence Insurance Name Policy Number Policy Hoyos Covered Member ID Hoyos Member ID Guarantor Name 12/06/2017 1 CIGNA [id number] Inés Terry [id number] Inés Terry 06/12/2022 1 [place] [id number] Al Harrison [id number] 001 Inés Terry Notes Date Note Type Note Provider Name and Address Organization Details Recorded Time 01/09/2017 text/html Acne SPReported by PatientHPIFor onset/timing, patient reportsrecurring. For duration, patient reportssince adolescence. For quality, patient reportsimproving. For severity, patient reportsimproving. For treatment history, patient reportsother treatment ___ with __(epiduo and topical lotion). For context, (picks a little).ROS as noted in the HPI using qod, epiduo every other day when it is not bad, and when using qd gets dry on the forehead and chin.no bleeding spots, changing moles, or sores that don't want to heal.present with mom. Madhuri Hoff MD [address] [facility], [address], [place], [address], [place] - Madhuri Hoff MD 01/14/2017 22:48:47 04/16/2017 text/html ROS as noted in the HPI acne fusays medication is working welldid not [...] cheek. no known changes. Madhuri Hoff MD [address] [place] [address], [address], [place], [address], JEFFREY Hoff MD 04/18/2017 23:10:45 06/05/2017 text/html Rash/Skin LesionReported by Patient rash started on the L axilla a [...] mom in the room. Madhuri Hoff MD [address] [place] [address], [address], [place], [address], JEFFREY Hoff MD 06/05/2017 09:22:01 12/06/2017 text/html ROS as noted in the [facility] acne follow upno concernsusing adapalene gel 0.3 gel once a day. she went back to the adapalene gel when she ran out of epiduo forte gel. she likes the adapalene gel better as feels it is less dryingran out of the clinda lotion and stopped usingnot using BP or acne wash currentlymild flare on the forehead, overall doing very well Madhuri Hoff MD [address] [place] [address], [address], [place], [address], JEFFREY Hoff MD 12/08/2017 22:54:39 06/06/2022 text/html ROS as noted in the [facility] COVID-19 protocol. Patient and any caregivers present screened to [...] cheekjust to have checked Madhuri Hoff MD [address] [facility], [address], [place], [address], [facility] - Madhuri Hoff MD 06/10/2022 16:47:28 OBGyn Episode No OBEpisode recorded.
--- NOTE | 2025-08-28 11:42 | ED_ITS ---
HPI - URI/Sore Throat General Chief Complaint: Upper Respiratory Infection Stated Complaint: flu/sick Time Seen by Provider: 08/28/25 11:30 Source: patient and RN notes reviewed Mode of arrival: ambulatory Limitations: no limitations History of Present Illness HPI Narrative: 25-year-old female presents to the [facility] complaining of upper respiratory symptoms for approximately 2 and half weeks. Patient reports cough, congestion, sore throat, nasal drainage that is not getting any better. Patient to the last 2 days she has had a worsening sore throat nasal drainage. Patient has any fevers, body aches, chills, nausea ,vomiting, diarrhea, chest pain, shortness of breath, or any other symptoms. Patient has not taken any [id number] help with symptoms. Patient denies any significant past medical history. 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 Related Data Allergies Allergy/AdvReac Type Severity Reaction Status Date / Time No Known Allergies Allergy Verified 08/28/25 11:13 Review of Systems Review of Systems: CONSTITUTIONAL: Denies fever, body aches, chills, or sweats. EYES: Denies visual changes, redness, or discharge. ENT: Denies congestion, sore throat, sinus pressure. Negative for rhinorrhea or otalgia. CARDIOVASCULAR: Denies chest pain, palpitations, or edema. RESPIRATORY: Positive cough. Negative for wheezing or dyspnea. GASTROINTESTINAL: Denies abdominal pain, nausea, vomiting, or diarrhea. GENITOURINARY: Denies dysuria or hematuria. SKIN: Denies rash or itching. MUSCULOSKELETAL: Denies back pain, joint pain, or myalgia. NEUROLOGIC: Denies headache, numbness, or weakness. PSYCHIATRIC: Denies anxiety or depression. All other systems reviewed are negative, except as documented in HPI. [facility] Past Medical History Medical History Elevated liver enzymes Elevated fasting glucose Weight loss Weight gain No pertinent past medical history BMI 26.0-26.9,adult Surgical History Surgical History H/O drainage of abscess 2024 [place] teeth removed 2020 No pertinent past surgical history Family History Family History Father Alcohol abuse Heart disease Grandparent Alcohol abuse Diabetes mellitus Mother Skin cancer Other Asthma Depression Social History Social History Smoking status: Never smoker Alcohol intake: current Substance use: never Substance use type: does not use Do You Feel Safe in your Home?: Yes Lack of Transportation: No Lack of Food: Never True Current Housing: I Have Housing Concerned About Future Housing: No Difficulty Paying Gas/Electric Bills: No Difficulty Paying for Meds: No Currently Unemployed: No Education: High School Diploma/GED Difficulty w/ Childcare or Family Care: No Living arrangements: other Occupation/Education: occupation Spiritual care concerns: No Agree to blood products: Yes Comments At the time of my signature, I reviewed and agree with the nursing past medical, surgical, social, and family history. There is no relevant family history pertinent to the patient complaint. Exam Narrative: GENERAL: This is a well-nourished, well-developed adult, in no apparent distress. They are non ill-appearing, nontoxic appearing. HEAD: normocephalic, atraumatic. EYES: Sclera clear/white. Conjunctiva normal. Vision is grossly intact. Extraocular movements intact EARS: External ears normal, auditory canals clear and without drainage, TMs normal without perforation. Hearing grossly intact. NOSE: External nose normal with no obvious nasal discharge, nasal turbinates erythematous, no rhinorrhea. THROAT: Mucous membranes moist, posterior pharynx edematous without erythema. Uvula midline. Postnasal drip present. NECK: Neck supple, non-tender without lymphadenopathy, masses or thyromegaly. CARDIOVASCULAR: Regular rate and rhythm without murmurs, gallops, or rubs. RESPIRATORY: Clear to auscultation. Breath sounds equal bilaterally. No wheezes, rales, or rhonchi. SKIN: warm, Dry, intact with no suspicious lesions or rash, good texture and turgor. NEURO: awake, alert, and oriented to person, place and time. There were no obvious focal neurologic abnormalities. EXTREMITIES: No joint tenderness, effusion, or edema noted. BACK: Nontender without deformity. No CVA tenderness. Course Course Emergency Course: Portions of this record may have been created with voice recognition software Level of Care: Express Care Visit Vital Signs Vital signs: Vital Signs Temperature 97.7 F 08/28/25 11:24 Pulse Rate 105 H 08/28/25 11:24 Respiratory Rate 18 08/28/25 11:24 Blood Pressure 131/93 H 08/28/25 11:24 Pulse Oximetry 98 08/28/25 11:24 Oxygen Delivery Room Air 08/28/25 11:24 Temperature 97.7 F 08/28/25 11:24 Pulse Rate 105 H 08/28/25 11:24 Respiratory Rate 18 08/28/25 11:24 Blood Pressure 131/93 H 08/28/25 11:24 Pulse Oximetry 98 08/28/25 11:24 Oxygen Delivery Room Air 08/28/25 11:24 Reviewed MDM - URI/Sore Throat MDM Narrative Medical decision making narrative: Given patient's length of symptoms likely patient has a bacterial sinusitis, will treat her with Augmentin. Work note given. Discussed physical exam findings. Advised supportive measures and signs/symptoms to go to the ER. Pt is appropriate for outpt treatment and f/u. Differential Diagnosis Differential diagnosis: Likely upper respiratory infection, sinusitis, viral infection and pharyngitis Critical Care Time Critical Care Time Critical Care Time: No Discharge Plan Discharge Clinical Impression: Sinusitis Qualifiers: Sinusitis location: unspecified location Chronicity: acute Recurrence: non- recurrent Qualified Code(s): J01.90 - Acute sinusitis, unspecified Patient Disposition: Home Condition: Stable Instructions: Antibiotic Form, Sinusitis (ED) Additional Instructions: Take the antibiotics as directed and complete the course even if you start to feel better. You may use a Neti pot saline rinse 3 times a day with lukewarm distilled water Continue to take Tylenol or Motrin as needed for fever or pain. Follow instructions on the bottle. Use a humidifier or vaporizer at night. Drink plenty of water. 8-10 glasses per day. Use flonase 2 times per day for 5 days then as needed Take mucinex 2 times per day and be sure to take with 8oz of water. Follow up with Primary provider in 3-5 days Please go to the ER if he develops any difficulty breathing, chest pain, vomiting, worsening fevers, worsening symptoms, or any other concerns Patient Language: Citizen Of [place] Prescriptions: New amoxicillin-pot clavulanate 875-125 mg tablet 1 tablet PO Q12H 7 Days Qty: 14 0RF Follow-up/Referrals: Nithin Jean MD [Primary Care Provider, Family Practice] Stand Alone Forms: Work/School Release IP Time of Disposition: 11:39
== END 2025-08-28 11:41 | disposition home or self-care (01) ==
PROVIDERS: PCP Family Medicine
DX: J01.90 Acute sinusitis, unspecified (principal)
CPT/HCPCS: 99213; G0463